=== PATIENT | male | born 1960 | race Caucasian/White ===

== ENCOUNTER 2021-01-01 09:42 | Outpatient (REF) | payer MEDICAID, SELFPAY ==
[2021-01-01 10:50] LABS: MANUAL DIFF FLAG NO
[2021-01-01 11:01] LABS: Basophils Absolute Auto 0.1 X10*3/uL (0.0-0.2); Basophils Percent Auto 0.6 % (0-2); Eosinophils Absolute Auto 0.1 X10*3/uL (0.0-0.4); Hematocrit 52.5 % (42-52); Hemoglobin 16.9 g/dl (14.0-18.0); Imm Gran Abs Auto 0.02 X10*3/uL (0.00-0.03); Imm Gran Pct Auto 0.3 % (0.0-0.4); Lymphocytes Absolute Auto 1.6 X10*3/uL (1.2-4.9); Lymphocytes Percent Auto 20.4 % (20-40); Mean Corpuscular HGB Conc 32.2 g/dl (31.0-36.0); Mean Corpuscular Hemoglobin 29.7 pg (27.0-33.0); Mean Corpuscular Volume 92.3 fL (80-98); Mean Platelet Volume 11.2 fL (9.4-12.4); Monocytes Absolute Auto 0.5 X10*3/uL (0.1-1.2); Monocytes Percent Auto 5.9 % (2-11); Neutrophils Absolute Auto 5.6 X10*3/uL (2.0-8.3); Neutrophils Percent Auto 71.8 % (45-73); Platelet Count 227 X10*3/uL (160-400); Red Blood Count 5.69 X10*6/uL (4.60-5.80); Red Cell Distribution Width 13.2 % (11.0-16.0); White Blood Count 7.8 X10*3/uL (4.8-10.8)
[2021-01-01 11:13] LABS: Alanine Aminotransferase 53 U/L (0-40); Albumin Level 4.6 g/dL (3.5-5.0); Alkaline Phosphatase 72 U/L (39-117); Anion Gap 12 (12-20); Aspartate Amino Transferase 32 U/L (5-37); Bilirubin Total 0.4 mg/dL (0.0-1.0); Blood Urea Nitrogen 12 mg/dL (9-16); Carbon Dioxide 30 mmol/L (22-29); Chloride 100 mmol/L (96-108); Cholesterol 217 mg/dL; Estimated Glomerular Filt Rate > 60; Glucose Random 96 mg/dL (60-115); HDL Cholesterol 48 mg/dL; LDL Cholesterol Calculated 145 mg/dl; Potassium 4.3 mmol/L (3.3-5.1); Sodium 138 mmol/L (135-145); Total Protein 7.5 g/dL (6.5-8.0); Triglycerides 121 mg/dL
[2021-01-01 11:35] LABS: Vitamin D 25-OH Total 15.9 ng/mL (>30)
== END 2021-01-01 09:43 | disposition home or self-care (01) ==
LOC: HO.LAB 09:42
PROVIDERS: PCP Nurse Practitioner Family; Visit Provider Nurse Practitioner Family
DX: E78.2 Mixed hyperlipidemia (principal); E55.9 Vitamin D deficiency, unspecified; J32.0 Chronic maxillary sinusitis
CPT/HCPCS: 36415; 80053; 80061; 82306; 85025

== ENCOUNTER 2021-01-09 10:32 | Emergency (ER) | payer MEDICAID, SELFPAY ==
[2021-01-09 11:07] VITALS: BP 168/94; PULSE 98; RESP 18; TEMP 36.6; O2SAT 98; BMI 26.3
--- NOTE | 2021-01-09 12:35 | ED.BACK ---
HPI - Back Pain/Injury General Chief Complaint: Back Pain/Injury Stated Complaint: back pain Time Seen by Provider: 01/09/21 12:04 Source: patient Mode of arrival: ambulatory History of Present Illness HPI Narrative: 60-year-old male of hypertension presenting to the ED complaining of right-sided lower back pain radiating down right lower extremity times a couple days. Reports pain worse with movement/ambulation. Denies known injury, trauma, or falls, numbness, tingling, weakness, urinary incontinence/retention, fever, chills MD elicited complaint: back pain Related Data Previous Rx's Medication Instructions Recorded acetaminophen [Tylenol Extra 500 mg PO Q6H PRN #20 tab 01/09/21 Strength] cyclobenzaprine 5 mg PO Q8H PRN 5 Days #14 tab 01/09/21 lidocaine [Lidoderm] 1 patch TOPICAL DAILY PRN #30 ea 01/09/21 MDD remove after 12 hours naproxen 500 mg PO BID PRN 10 Days #20 tab 01/09/21 Allergies Allergy/AdvReac Type Severity Reaction Status Date / Time cephalexin [From KEFLEX] Allergy Unknown RASH Unverified 04/19/20 15:43 naproxen [NAPROXEN] Allergy Unknown RASH Unverified 04/19/20 15:43 sulfamethoxazole Allergy Unknown RASH Unverified 04/19/20 15:43 [From BACTRIM] trimethoprim [From BACTRIM] Allergy Unknown RASH Unverified 04/19/20 15:43 keflex Allergy Unknown Uncoded 08/05/19 00:00 naproxen Allergy Unknown Uncoded 08/05/19 00:00 sulfa Allergy Unknown Uncoded 08/05/19 00:00 Review of Systems Review of Systems: Constitutional: No Fever, No Chills Cardiovascular: No Chest Pain, No SOB Respiratory: No Cough, No Sputum, No Wheezing Gastrointestinal: No Nausea, No Vomiting, No Abdominal pain Genitourinary: No Dysuria, No Urinary Incontinence/retention Musculoskeletal: + joint pain, No Myalgias, No Joint Swelling Skin: No Skin Lesions, No rash Neuro: No Weakness, No Numbness, No Paresthesias Yes all other systems are reviewed and are negative Neurologic: Denies Sensory deficit (Neuro) [facility] Past Medical History Attestation statement: The following information was validated with the patient. Medical History (Updated 01/09/21 @ 12:35 by JEEVAN Cruz) HTN (hypertension) Social History Social History Advance Directives: No Advance Directives Information Provided: No Physical Exam Vital Signs: Vital Signs: Last Vital Signs Temp 97.8 F 01/09/21 11:07 Pulse 98 01/09/21 11:07 Resp 18 01/09/21 11:07 BP 168/94 H 01/09/21 11:07 Pulse Ox 98 01/09/21 11:07 Body Mass Index 26.3 Const: General: cooperative, healthy appearing and no acute distress Orientation/consciousness: patient oriented x3 Limitations: no limitations HENMT: Head: Yes normal to inspection Ears: hearing grossly normal bilaterally General nose exam: Normal external nose present Face and sinus: Yes normal facial exam Eyes: General: appearance normal, both eyes and all related structures EOM: EOMs intact bilaterally Neck: Neck: Yes normal visual inspection and Yes no meningeal signs Resp: Effort & Inspection: normal respiratory effort Cardio: Rate: regular rate GI: Inspection: Yes normal to inspection Palpation (GI): Soft to palpation, nontender, no guarding and not rigid Back/Spine/Pelvis: Other: no midline cervical, thoracic, or lumbar spinous tenderness. + Right-sided lower lumbar MSK tenderness to palpation Skin: Rashes: no rashes Wounds: no wounds Neuro: Other: no saddle anesthesia, ambulating with steady gait General: patient oriented x3, gait normal, tone normal, moves all extremities and no meningeal signs Gait exam (Neuro): Normal gait present Motor exam (neuro): 5/5 motor strength present throughout Sensory Exam: No Sensory deficit (Neuro) Extrem: General: Yes normal to inspection MDM - Back Pain/Injury MDM Narrative Medical decision making narrative: 60-year-old male of hypertension presenting to the ED complaining of right-sided lower back pain radiating down right lower extremity times a couple days. On exam vital signs stable, NAD, well appearing, ambulating with steady gait, no midline spinous tenderness throughout, no red flag symptoms, no saddle anesthesia. MSK tenderness elicited on exam. Likely MSK pain / sciatica. Low concern for cauda equina, cord compression, or fracture/dislocation Medical Records Attestation: I reviewed the patient's medical records. Discharge Plan Discharge Clinical Impression: Lumbar radiculopathy Sciatica Qualifiers: Laterality: right Qualified Code(s): M54.31 - Sciatica, right side Patient Disposition: Home, Self-Care Instructions: Acute Low Back Pain (ED) Additional Instructions: Your pain is likely musculoskeletal Flexeril is a muscle relaxer, take at night as it makes you drowsy, do not drive, drink alcohol, or operate machinery while taking it Naproxen as an anti-inflammatory / pain medication, take with food Lidoderm patches are numbing patches, apply to painful area In addition take Tylenol at home If symptoms persist or worsen, pain becomes unbearable, you developed urinary retention or incontinence, or weakness return to the ED Prescriptions: New acetaminophen [Tylenol Extra Strength] 500 mg tablet 500 mg PO Q6H PRN (Reason: pain or fever) Qty: 20 RF: 0 lidocaine [Lidoderm] 5 % adhesive patch,medicated 1 patch topical DAILY MDD remove after 12 hours PRN (Reason: pain) Qty: 30 RF: 0 naproxen 500 mg tablet 500 mg PO BID PRN (Reason: pain) 10 Days Qty: 20 RF: 0 cyclobenzaprine 5 mg tablet 5 mg PO Q8H PRN (Reason: pain (scale score 7-10)) 5 Days Qty: 14 RF: 0 Referrals: Claire Hidalgo NP [Primary Care Provider] - 2 days Interventions: ED Discharge Assessment Last Done: 01/09/21 12:43 Discharge Date/Time: 01/09/21 12:44
[2021-01-09] MEDS: Ketorolac Tromethamine 30 MG/ML VIAL IM (12:38)
== END 2021-01-09 12:44 | disposition home or self-care (01) ==
PROVIDERS: Emergency Provider Emergency Medicine; PCP Nurse Practitioner Family
DX: M54.16 Radiculopathy, lumbar region (principal); M54.31 Sciatica, right side; I10 Essential (primary) hypertension; Z79.899 Other long term (current) drug therapy
CPT/HCPCS: 96372; 99283; 99284; J1885

== ENCOUNTER 2021-01-22 08:24 | Outpatient (REF) | payer MEDICAID, SELFPAY ==
--- NOTE | ~2021-01-22 | XR_ITS ---
EXAMINATION: XR FEMUR, RIGHT CLINICAL INFORMATION: Pain in right leg. COMPARISON: None TECHNIQUE: Right femur is imaged in 4 views. FINDINGS: There is normal bony mineralization. No fracture or destructive process or periostitis. The right hip shows no narrowing or erosive change or chondrocalcinosis. The visualized right SI joint and the pubis are unremarkable. The knee shows no gross joint narrowing and no erosive change. No definite suprapatellar effusion. XR/XR femur RT 2V IMPRESSION: Normal right femur.
== END 2021-01-22 08:25 | disposition home or self-care (01) ==
LOC: HO.XRAY 08:24
PROVIDERS: PCP Nurse Practitioner Family; Visit Provider Internal Medicine
DX: M25.551 Pain in right hip (principal)
CPT/HCPCS: 73552

== ENCOUNTER 2021-02-05 07:58 | Outpatient (REF) | payer MEDICAID, SELFPAY ==
--- NOTE | ~2021-02-05 | XR_ITS ---
EXAMINATION: XR LUMBOSACRAL SPINE CLINICAL INFORMATION: Low back pain with sciatica COMPARISON: None TECHNIQUE: Three views of the lumbosacral spine. FINDINGS: There is endplate osteophyte formation at the L1-2, L3-4, and L4-5 level indicative of mild degenerative disc disease. No associated disc space narrowing. No fracture or bone lesion. Facets unremarkable. Mild calcification of the abdominal aorta. Visualized pelvis including sacroiliac joints are normal. XR/XR lumbar spine 2-3V IMPRESSION: Mild spondylosis of lumbar sacral spine.
== END 2021-02-05 07:59 | disposition home or self-care (01) ==
LOC: HO.XRAY 07:58
PROVIDERS: PCP Nurse Practitioner Family; Visit Provider Internal Medicine
DX: M54.40 Lumbago with sciatica, unspecified side (principal)
CPT/HCPCS: 72100

== ENCOUNTER 2021-09-13 08:42 | Outpatient (REF) | payer MEDICAID, SELFPAY ==
[2021-09-13 09:02] LABS: MANUAL DIFF FLAG NO
[2021-09-13 10:11] LABS: Appearance Urine CLEAR; Color Urine YELLOW; Glucose Urine UA NEG (NEG); Leukocyte Esterase Urine NEG (NEG); Nitrite Urine NEG (NEG); Urine Blood NEG (NEG); Urine Ketones NEG (NEG); Urine Protein NEG (NEG-TRACE)
[2021-09-13 10:12] LABS: Basophils Absolute Auto 0.1 X10*3/uL (0.0-0.2); Basophils Percent Auto 0.9 % (0-2); Eosinophils Absolute Auto 0.2 X10*3/uL (0.0-0.4); Eosinophils Percent Auto 2.6 % (0-4); Hematocrit 48.7 % (42.0-52.0); Hemoglobin 15.5 g/dl (14.0-18.0); Imm Gran Abs Auto 0.01 X10*3/uL (0.00-0.03); Imm Gran Pct Auto 0.2 % (0.0-0.4); Lymphocytes Absolute Auto 1.9 X10*3/uL (1.2-4.9); Lymphocytes Percent Auto 31.6 % (20-40); Mean Corpuscular HGB Conc 31.8 g/dl (31.0-36.0); Mean Corpuscular Hemoglobin 29.6 pg (27.0-33.0); Mean Corpuscular Volume 92.9 fL (80.0-98.0); Mean Platelet Volume 11.3 fL (9.4-12.4); Monocytes Absolute Auto 0.5 X10*3/uL (0.1-1.2); Monocytes Percent Auto 9.1 % (2-11); Neutrophils Absolute Auto 3.3 x10*3/uL (2.0-8.3); Neutrophils Percent Auto 55.6 % (45-73); Platelet Count 237 X10*3/uL (160-400); Red Blood Count 5.24 X10*6/uL (4.60-5.80); Red Cell Distribution Width 13.8 % (11.0-16.0); White Blood Count 5.9 X10*3/uL (4.8-10.8)
[2021-09-13 10:17] LABS: Alanine Aminotransferase 21 U/L (0-40); Albumin Level 4.4 g/dL (3.5-5.0); Alkaline Phosphatase 73 U/L (39-117); Anion Gap 10 (12-20); Aspartate Amino Transferase 20 U/L (5-37); Bilirubin Total 0.5 mg/dL (0.0-1.0); Blood Urea Nitrogen 11 mg/dL (9-16); Calcium 9.7 mg/dL (8.4-10.2); Carbon Dioxide 29 mmol/L (22-29); Chloride 105 mmol/L (96-108); Cholesterol 176 mg/dL; Estimated Glomerular Filt Rate > 60; Glucose Random 84 mg/dL (60-115); HDL Cholesterol 55 mg/dL; LDL Cholesterol Calculated 106 mg/dl; Potassium 4.8 mmol/L (3.3-5.1); Sodium 139 mmol/L (135-145); Total Protein 7.2 g/dL (6.5-8.0); Triglycerides 76 mg/dL
[2021-09-13 10:39] LABS: Prostate Specific Antigen 1.07 ng/mL (<0.05-4.0)
== END 2021-09-13 08:43 | disposition home or self-care (01) ==
LOC: HO.LAB 08:42
PROVIDERS: PCP Nurse Practitioner Family; Visit Provider Nurse Practitioner Family
DX: I10 Essential (primary) hypertension (principal); R32 Unspecified urinary incontinence; Z12.5 Encounter for screening for malignant neoplasm of prostate
CPT/HCPCS: 36415; 80053; 80061; 81003; 84153; 85025

== ENCOUNTER 2021-11-11 11:35 | Emergency (ER) | payer MEDICAID, SELFPAY ==
--- NOTE | ~2021-11-11 | XR_ITS ---
EXAMINATION: XR CHEST CLINICAL INFORMATION: Chest pain COMPARISON: None TECHNIQUE: Frontal view of the chest was obtained. FINDINGS: The lungs are well-expanded and clear of acute pneumonic process. There are small millimeter nodule left upper lobe overlying posterior fifth rib and a 6 mL nodule medially in the left upper lobe adjacent to the aortic knob. Heart size and pulmonary vascularity is normal. No gross bony or the body seen. XR/XR chest 1V IMPRESSION: The lungs are clear. 2 nodules left lower lobe. The larger nodules medially adjacent aortic knob is unchanged to previous study 10/12/2015. The other nodule is new.
--- NOTE | 2021-11-11 11:39 | ECG_ITS ---
Test Reason : cp Blood Pressure : / mmHG Vent. Rate : 098 BPM Atrial Rate : 098 BPM P-R Int : 144 ms QRS Dur : 094 ms QT Int : 344 ms P-R-T Axes : 068 055 060 degrees QTc Int : 439 ms Normal sinus rhythm Incomplete right bundle branch block Borderline ECG No previous ECGs available Referred By: Generic ED Physician Electronically Signed By:Wilson Gordillo
[2021-11-11 11:41] VITALS: BP 168/109; PULSE 93; RESP 18; TEMP 36.1; O2SAT 95; BMI 25.8
[2021-11-11 11:55] LABS: MANUAL DIFF FLAG NO
[2021-11-11 11:56] LABS: Basophils Absolute Auto 0.1 X10*3/uL (0.0-0.2); Basophils Percent Auto 0.6 % (0-2); Eosinophils Absolute Auto 0.1 X10*3/uL (0.0-0.4); Eosinophils Percent Auto 1.3 % (0-4); Hematocrit 47.1 % (42.0-52.0); Hemoglobin 15.4 g/dl (14.0-18.0); Imm Gran Abs Auto 0.02 X10*3/uL (0.00-0.03); Imm Gran Pct Auto 0.2 % (0.0-0.4); Lymphocytes Absolute Auto 2.1 X10*3/uL (1.2-4.9); Lymphocytes Percent Auto 24.9 % (20-40); Mean Corpuscular HGB Conc 32.7 g/dl (31.0-36.0); Mean Corpuscular Hemoglobin 30.1 pg (27.0-33.0); Monocytes Absolute Auto 0.6 X10*3/uL (0.1-1.2); Monocytes Percent Auto 7.3 % (2-11); Neutrophils Absolute Auto 5.5 x10*3/uL (2.0-8.3); Neutrophils Percent Auto 65.7 % (45-73); Platelet Count 206 X10*3/uL (160-400); Red Blood Count 5.12 X10*6/uL (4.60-5.80); Red Cell Distribution Width 13.8 % (11.0-16.0); White Blood Count 8.4 X10*3/uL (4.8-10.8)
[2021-11-11 12:11] LABS: Anion Gap 12 (12-20); Blood Urea Nitrogen 9 mg/dL (9-16); Calcium 9.6 mg/dL (8.4-10.2); Carbon Dioxide 22 mmol/L (22-29); Chloride 107 mmol/L (96-108); Creatinine Clr Calc Pharmacy 85.4; Estimated Glomerular Filt Rate > 60; Glucose Random 114 mg/dL (60-115); Potassium 3.7 mmol/L (3.3-5.1); Sodium 137 mmol/L (135-145)
[2021-11-11 12:18] LABS: Troponin-I High Sensitivity < 3.5 ng/L (<3.5-35.0)
--- NOTE | 2021-11-11 13:56 | ED.CHESTPAIN ---
HPI - Chest Pain General Chief Complaint: Chest Pain Stated Complaint: chest pain Time Seen by Provider: 11/11/21 13:56 Source: patient Mode of arrival: ambulatory Limitations: no limitations History of Present Illness MD complaint: chest pain Onset (ago): day(s) (2) Timing of current episode: episodic Prior episodes: No Onset: during rest Pain radiation: right arm Severity: moderate Quality: tightness and aching Relieving factors: nothing and other Exacerbating factors: palpation and movement Context: other (? hurt his R chest lifting something at work) Treatment prior to arrival: none Related Data Previous Rx's Medication Instructions Recorded acetaminophen 500 mg tablet 500 mg PO Q6H PRN #20 tab 01/09/21 (Tylenol Extra Strength) cyclobenzaprine 5 mg tablet 5 mg PO Q8H PRN 5 Days #14 tab 01/09/21 lidocaine 5 % topical patch 1 patch TOPICAL DAILY PRN #30 ea 01/09/21 (Lidoderm) MDD remove after 12 hours naproxen 500 mg tablet 500 mg PO BID PRN 10 Days #20 tab 01/09/21 cyclobenzaprine 10 mg tablet 10 mg PO TID PRN #14 tab 11/11/21 lidocaine 4 % topical patch 1 patch TOPICAL DAILY PRN #10 ea 11/11/21 Allergies Allergy/AdvReac Type Severity Reaction Status Date / Time cephalexin [From KEFLEX] Allergy Unknown RASH Unverified 04/19/20 15:43 naproxen [NAPROXEN] Allergy Unknown RASH Unverified 04/19/20 15:43 sulfamethoxazole Allergy Unknown RASH Unverified 04/19/20 15:43 [From BACTRIM] trimethoprim [From BACTRIM] Allergy Unknown RASH Unverified 04/19/20 15:43 keflex Allergy Unknown Uncoded 08/05/19 00:00 naproxen Allergy Unknown Uncoded 08/05/19 00:00 sulfa Allergy Unknown Uncoded 08/05/19 00:00 Review of Systems Review of Systems: Constitutional : No Weight loss, No Fever, No Chills ENT/Mouth : No sore throat, No Rhinorrhea Eyes: No Eye Pain, No Swelling Cardiovascular : pos Chest Pain, no SOB, no Dyspnea on Exertion, No Orthopnea, No Edema, No Palpitations Respiratory : No Cough, No Sputum Gastrointestinal : no Nausea, No Vomiting, No Diarrhea, No abdominal Pain, No Hematochezia, No Melena Genitourinary : No Dysuria, No Urinary Frequency Musculoskeletal : No joint pain, No Myalgias, No Joint Swelling Skin : No Skin Lesions, No rash Neuro : No Weakness, No Numbness, No Dizziness, No Headache Psych : No Anxiety/Panic, No Depression Heme/Lymph: No Bruising, No Lymphadenopathy Endocrine : No Polyuria, No Polydipsia All other systems reviewed and are negative [facility] Past Medical History Attestation statement: The following information was validated with the patient. Medical History HTN (hypertension) Social History Social History (Updated 11/11/21 @ 14:15 by Zaida Vila DO) Patient Tobacco Use Status: Never used Tobacco Advance Directives: No Advance Directives Information Provided: No Physical Exam Vital Signs: Vital Signs: Last Vital Signs Temp 97.0 F 11/11/21 11:41 Pulse 93 11/11/21 11:41 Resp 18 11/11/21 11:41 BP 168/109 H 11/11/21 11:41 Pulse Ox 95 11/11/21 11:41 BMI result Body Mass Index 25.8 Appearance: Alert. Oriented X3. No acute distress. Eyes: Pupils equal, round and reactive to light. ENT: Pharynx normal. Neck: Normal inspection. Neck supple. CVS: Normal heart rate and rhythm. Pulses normal. Chest: ttp along R chest wall reproduces pain pain with ROM of R arm, tenderness over R pectoralis insertion site Respiratory: No respiratory distress. Breath sounds normal. Abdomen: Soft and non-tender. Skin: Skin warm and dry. Normal skin color. Normal skin turgor. Extremities: No lower extremity edema. No calf ttp Neuro: Oriented X 3. No motor deficit. No sensory deficit. Course Course Course Narrative: non-ischemic EKG, repeat trop negative stable for DC discussed nodules on CXR with patient and need to see PCP for outpatient CT of chest, he verbalized understanding. MDM - Chest Pain MDM Narrative Medical decision making narrative: 61 yo male with hx of HTN here with reproducible R sided chest wall pain - he thinks he might have injured it at work. He has no associated symptoms. He denies any dyspnea/nausea. It is very reproduceable in nature which is atypical for ACS. He has bounding distal pulses doubt dissection. no hypoxia, not pleuritic no signs of DVT doubt PE. Will obtain two troponins if negative treat for chest wall strain. BP slightly high might be pain related. Lab Data Result diagrams: 11/11/21 11:50 11/11/21 11:50 Labs: Lab Results 11/11/21 11/11/21 11/11/21 Range/Units 11:50 11:50 11:50 WBC 8.4 (4.8-10.8) X10*3/uL RBC 5.12 (4.60-5.80) X10*6/uL Hgb 15.4 (14.0-18.0) g/dl Hct 47.1 (42.0-52.0) % MCV 92.0 (80.0-98.0) fL MCH 30.1 (27.0-33.0) pg MCHC 32.7 (31.0-36.0) g/dl RDW 13.8 (11.0-16.0) % Plt Count 206 (160-400) X10*3/uL MPV 10.0 (9.4-12.4) fL Immature Gran % (Auto) 0.2 (0.0-0.4) % Neut % (Auto) 65.7 (45-73) % Lymph % (Auto) 24.9 (20-40) % [place] % (Auto) 7.3 (2-11) % Eos % (Auto) 1.3 (0-4) % Baso % (Auto) 0.6 (0-2) % Lymph # (Auto) 2.1 (1.2-4.9) X10*3/uL [place] # (Auto) 0.6 (0.1-1.2) X10*3/uL Eos # (Auto) 0.1 (0.0-0.4) X10*3/uL Baso # (Auto) 0.1 (0.0-0.2) X10*3/uL Abs Immat Gran (auto) 0.02 (0.00-0.03) X10*3/uL Absolute Neuts (auto) 5.5 (2.0-8.3) x10*3/uL Absolute Nucleated RBC 0.000 (0.0-0.012) X10*3/uL Nucleated RBC % (auto) 0.0 (0.0-0.2) /100WBC Sodium 137 (135-145) mmol/L Potassium 3.7 D (3.3-5.1) mmol/L Chloride 107 (96-108) mmol/L Carbon Dioxide 22 (22-29) mmol/L Anion Gap 12 (12-20) BUN 9 (9-16) mg/dL Creatinine 0.84 (0.5-1.4) mg/dL Estim Creat Clear Calc 85.4 Estimated GFR > 60 Random Glucose 114 D (60-115) mg/dL Calcium 9.6 (8.4-10.2) mg/dL Troponin I High Sens < 3.5 (<3.5-35.0) ng/L 11/11/21 Range/Units 14:32 WBC (4.8-10.8) X10*3/uL RBC (4.60-5.80) X10*6/uL Hgb (14.0-18.0) g/dl Hct (42.0-52.0) % MCV (80.0-98.0) fL MCH (27.0-33.0) pg MCHC (31.0-36.0) g/dl RDW (11.0-16.0) % Plt Count (160-400) X10*3/uL MPV (9.4-12.4) fL Immature Gran % (Auto) (0.0-0.4) % Neut % (Auto) (45-73) % Lymph % (Auto) (20-40) % [place] % (Auto) (2-11) % Eos % (Auto) (0-4) % Baso % (Auto) (0-2) % Lymph # (Auto) (1.2-4.9) X10*3/uL [place] # (Auto) (0.1-1.2) X10*3/uL Eos # (Auto) (0.0-0.4) X10*3/uL Baso # (Auto) (0.0-0.2) X10*3/uL Abs Immat Gran (auto) (0.00-0.03) X10*3/uL Absolute Neuts (auto) (2.0-8.3) x10*3/uL Absolute Nucleated RBC (0.0-0.012) X10*3/uL Nucleated RBC % (auto) (0.0-0.2) /100WBC Sodium (135-145) mmol/L Potassium (3.3-5.1) mmol/L Chloride (96-108) mmol/L Carbon Dioxide (22-29) mmol/L Anion Gap (12-20) BUN (9-16) mg/dL Creatinine (0.5-1.4) mg/dL Estim Creat Clear Calc Estimated GFR Random Glucose (60-115) mg/dL Calcium (8.4-10.2) mg/dL Troponin I High Sens < 3.5 (<3.5-35.0) ng/L ECG Data ECG #1: Attestation: I personally reviewed and interpreted this ECG as follows: ECG interpretation date: 11/11/21 ECG interpretation time: 13:57 Interpretation: Rate: 98 Rhythm: NSR [place]: normal Normal P waves. Normal SANDIE. incomplete RBBB ST T wave : normal no ASHLIE qTC: normal prior studies: no acute ischemia The study has been interpreted contemporaneously by me. Discharge Plan Discharge Clinical Impression: Atypical chest pain Patient Disposition: Home, Self-Care Instructions: Chest Pain (ED) Additional Instructions: return to ED for any worsening symptoms or concerns repeat heart tests negative, chest xray negative Prescriptions: New cyclobenzaprine 10 mg tablet 10 mg PO TID PRN (Reason: muscle spasm) Qty: 14 0RF lidocaine 4 % adhesive patch,medicated 1 patch topical DAILY PRN (Reason: pain) Qty: 10 0RF Rx Instructions: may leave on for up to 12 hrs No Action acetaminophen [Tylenol Extra Strength] 500 mg tablet 500 mg PO Q6H PRN (Reason: pain or fever) Qty: 20 0RF lidocaine [Lidoderm] 5 % adhesive patch,medicated 1 patch topical DAILY MDD remove after 12 hours PRN (Reason: pain) Qty: 30 0RF Rx Instructions: leave on most painful area for up to 12 hrs naproxen 500 mg tablet 500 mg PO BID PRN (Reason: pain) 10 Days Qty: 20 0RF cyclobenzaprine 5 mg tablet 5 mg PO Q8H PRN (Reason: pain (scale score 7-10)) 5 Days Qty: 14 0RF Referrals: Claire Hidalgo NP [Primary Care Provider] - 2 days (if no improvement) Stand Alone Forms: Work/School Release Interventions: ED Discharge Assessment Last Done: 11/11/21 15:23 Discharge Date/Time: 11/11/21 15:24
[2021-11-11] MEDS: Lidocaine 4 % Patch ADH..PATCH 1 PATCH TRANSDERMA (14:38)
[2021-11-11] MEDS: Cyclobenzaprine HCl 10 MG TABLET PO (14:38)
[2021-11-11 15:00] LABS: Troponin-I High Sensitivity < 3.5 ng/L (<3.5-35.0)
== END 2021-11-11 15:24 | disposition home or self-care (01) ==
PROVIDERS: Emergency Provider Emergency Medicine; PCP Nurse Practitioner Family
DX: R07.89 Other chest pain (principal); I10 Essential (primary) hypertension
CPT/HCPCS: 36415; 71045; 80048; 84484; 85025; 93005; 99283

== ENCOUNTER 2021-11-22 13:34 | Outpatient (REF) | payer MEDICAID, SELFPAY ==
--- NOTE | ~2021-11-22 | US_ITS ---
EXAMINATION: US RETROPERITONEAL LIMITED (AORTA) CLINICAL INFORMATION: Abdominal aortic aneurysm. COMPARISON: None TECHNIQUE: Mijares-scale, color Doppler and spectral Doppler evaluation of the abdominal aorta. FINDINGS: The aorta is atherosclerotic. The measurements of the aorta in maximum AP and transverse dimensions respectively are as follows: Proximal: 2.7 x 2.8 cm. Mid: 2.1 x 2.7 cm. Distal: 1.7 x 2.0 cm. PSV: 63 cm/s. The measurements of the common iliac arteries in maximum AP and TRV dimensions are as follows: Right Common Iliac Artery: 1.3 x 1.4 cm. Left Common Iliac Artery: 1.0 x 1.2 cm. US/US abdominal aortic aneurysm IMPRESSION: Atherosclerotic abdominal aorta. Negative for abdominal aortic aneurysm.
== END 2021-11-22 13:35 | disposition home or self-care (01) ==
LOC: HO.US 13:34
PROVIDERS: Visit Provider Nurse Practitioner Family
DX: I77.819 Aortic ectasia, unspecified site (principal)
CPT/HCPCS: 76706

== ENCOUNTER 2022-09-08 08:11 | Outpatient (REF) | payer MEDICAID, SELFPAY ==
[2022-09-08 08:19] LABS: MANUAL DIFF FLAG NO
[2022-09-08 09:29] LABS: Basophils Percent Auto 0.5 % (0-2); Eosinophils Absolute Auto 0.1 X10*3/uL (0.0-0.4); Eosinophils Percent Auto 1.3 % (0-4); Hematocrit 48.9 % (42.0-52.0); Hemoglobin 15.8 g/dl (14.0-18.0); Imm Gran Abs Auto 0.01 X10*3/uL (0.00-0.03); Imm Gran Pct Auto 0.2 % (0.0-0.4); Lymphocytes Absolute Auto 2.2 X10*3/uL (1.2-4.9); Lymphocytes Percent Auto 34.9 % (20-40); Mean Corpuscular HGB Conc 32.3 g/dl (31.0-36.0); Mean Corpuscular Hemoglobin 29.6 pg (27.0-33.0); Mean Corpuscular Volume 91.7 fL (80.0-98.0); Mean Platelet Volume 11.6 fL (9.4-12.4); Monocytes Absolute Auto 0.7 X10*3/uL (0.1-1.2); Monocytes Percent Auto 10.6 % (2-11); Neutrophils Absolute Auto 3.3 x10*3/uL (2.0-8.3); Neutrophils Percent Auto 52.5 % (45-73); Platelet Count 182 X10*3/uL (160-400); Red Blood Count 5.33 X10*6/uL (4.60-5.80); Red Cell Distribution Width 13.7 % (11.0-16.0); White Blood Count 6.2 X10*3/uL (4.8-10.8)
[2022-09-08 10:03] LABS: Alanine Aminotransferase 36 U/L (0-40); Albumin Level 4.1 g/dL (3.5-5.0); Alkaline Phosphatase 75 U/L (39-117); Anion Gap 14 (12-20); Aspartate Amino Transferase 29 U/L (5-37); Bilirubin Total 0.5 mg/dL (0.0-1.0); Blood Urea Nitrogen 10 mg/dL (9-16); Calcium 9.3 mg/dL (8.4-10.2); Carbon Dioxide 25 mmol/L (22-29); Chloride 105 mmol/L (96-108); Cholesterol 182 mg/dL; Estimated Glomerular Filt Rate > 60; Glucose Random 89 mg/dL (60-115); HDL Cholesterol 47 mg/dL; LDL Cholesterol Calculated 109 mg/dl; Potassium 4.3 mmol/L (3.3-5.1); Sodium 140 mmol/L (135-145); Total Protein 6.7 g/dL (6.5-8.0); Triglycerides 131 mg/dL
[2022-09-08 10:22] LABS: Prostate Specific Antigen Scr 1.46 ng/mL (<0.05-4.0)
== END 2022-09-08 08:12 | disposition home or self-care (01) ==
LOC: HO.LAB 08:11
PROVIDERS: PCP Nurse Practitioner Family; Visit Provider Nurse Practitioner Family
DX: E78.2 Mixed hyperlipidemia (principal); I10 Essential (primary) hypertension; Z12.5 Encounter for screening for malignant neoplasm of prostate
CPT/HCPCS: 36415; 80053; 80061; 84153; 85025

== ENCOUNTER 2022-10-03 07:40 | Outpatient (REF) | payer MEDICAID, SELFPAY ==
--- NOTE | ~2022-10-03 | CT_ITS ---
EXAMINATION: CT CHEST WITH CONTRAST CLINICAL INFORMATION: Multiple lung nodules. Two (2) nodules on chest x-ray. COMPARISON: Chest x-ray 11/11/2021 TECHNIQUE: Multidetector volumetric CT imaging of the chest was obtained after the administration of 50 mL of Omnipaque 350 intravenous contrast without immediate adverse reactions. Axial MIP volume rendering provided. Sagittal and coronal reformatted images were obtained. This CT examination was performed using dose optimization techniques as appropriate, variously including the following: *Automated exposure control *Adjustment of mA and/or kV according to patient size (this includes techniques or standardized protocols for targeted exams where dose is matched to indication/reason for exam; i.e. extremities or head) *Use of iterative reconstruction technique DLP: 151 mGy-cm FINDINGS: RN SPINE: Unremarkable. LUNGS: The lungs are well-expanded and clear of acute pneumonic process. There is a 7 mm calcified nodule left upper lobe. No additional nodules seen. There is plate-like atelectasis in the lingula. MEDIASTINUM: The thyroid lobes are symmetric and normal. The central trachea and the bronchi are widely patent. Heart size and the great vessels are normal caliber. There is atherosclerotic changes involving thoracic arch and descending thoracic aorta. The ascending aorta measures 4.2 x 4.0 cm. No abnormal mediastinal or hilar lymph nodes. Mild coronary artery calcifications are present. There is no pericardial effusion. PLEURA: There is no pleural effusion. No pleural mass or thickening. AXILLA: No lymphadenopathy. UPPER ABDOMEN: Visualized liver, spleen, pancreas appear unremarkable. Bilateral adrenal glands are mildly hypertrophied. No radiopaque gallstone seen. OSSEOUS STRUCTURES: No aggressive lytic or sclerotic process seen. CT/CT chest w IV con IMPRESSION: 1. Calcified granuloma left upper lobe. No additional nodules seen. No follow-up is needed. 2. No abnormal mediastinal or axillary lymph nodes. Fleischner guidelines were followed.
[2022-10-03] MEDS: iohexoL 350 MG/ML 100 ML INFUS..BTL IV (09:03)
== END 2022-10-03 07:41 | disposition home or self-care (01) ==
LOC: HO.CT 07:40
PROVIDERS: Visit Provider Nurse Practitioner Family
DX: R91.8 Other nonspecific abnormal finding of lung field (principal)
CPT/HCPCS: 71260; Q9967

== ENCOUNTER 2023-01-02 12:46 | Emergency (ER) | payer MEDICAID, SELFPAY ==
[2023-01-02 12:54] VITALS: BP 128/88; PULSE 100; RESP 18; TEMP 36.8; O2SAT 98; BMI 26.6
--- NOTE | 2023-01-02 12:54 | ED.GENADULT ---
HPI - General Adult General Chief complaint: Skin/Abscess/Foreign Body Stated complaint: Cyst Between Buttocks Time Seen by Provider: 01/02/23 13:05 History of Present Illness HPI narrative: Patient complains of abscess in the gluteal area that has developed over the last 4 days and is painful and is now discharging pus he denies any fever no abdominal pain no nausea or vomiting Related Data Previous Rx's Medication Instructions Recorded acetaminophen 500 mg tablet 500 mg PO Q6H PRN pain or fever 01/09/21 (Tylenol Extra Strength) #20 tabs cyclobenzaprine 5 mg tablet 5 mg PO Q8H PRN pain (scale score 01/09/21 7-10) 5 days #14 tabs lidocaine 5 % topical patch 1 patch topical DAILY PRN pain #30 01/09/21 (Lidoderm) ea naproxen 500 mg tablet 500 mg PO BID PRN pain 10 days #20 01/09/21 tabs cyclobenzaprine 10 mg tablet 10 mg PO TID PRN muscle spasm #14 11/11/21 tabs lidocaine 4 % topical patch 1 patch topical DAILY PRN pain #10 11/11/21 ea acetaminophen 500 mg tablet 1,000 mg PO QID PRN pain #30 tabs 01/02/23 doxycycline hyclate 100 mg capsule 100 mg PO BID 7 days #14 caps 01/02/23 oxycodone 5 mg tablet 5 mg PO Q6H PRN pain #10 tabs 01/02/23 Allergies Allergy/AdvReac Type Severity Reaction Status Date / Time cephalexin [From KEFLEX] Allergy Unknown RASH Unverified 04/19/20 15:43 naproxen [NAPROXEN] Allergy Unknown RASH Unverified 04/19/20 15:43 sulfamethoxazole Allergy Unknown RASH Unverified 04/19/20 15:43 [From BACTRIM] trimethoprim [From BACTRIM] Allergy Unknown RASH Unverified 04/19/20 15:43 keflex Allergy Unknown Uncoded 08/05/19 00:00 naproxen Allergy Unknown Uncoded 08/05/19 00:00 sulfa Allergy Unknown Uncoded 08/05/19 00:00 [facility] Past Medical History Source: nursing notes reviewed Medical History HTN (hypertension) Social History Social History (Updated 11/11/21 @ 14:15 by Fabiana Vila DO) Patient Tobacco Use Status: Never used Tobacco Advance Directives: No Advance Directives Information Provided: Yes Physical Exam ED Vital Signs: Vital Signs - 24 hr 01/02/23 12:54 Temperature 98.3 F Pulse Rate 100 Respiratory Rate 18 Blood Pressure 128/88 Pulse Oximetry 98 Oxygen Delivery Method Room Air BMI result Body Mass Index 26.6 General appearance is no distress Head normocephalic atraumatic Neck is supple Abdomen soft nontender Skin exam on the left gluteal area medial there is a red tender fluctuant area discharging pus consistent with an abscess with minimal surrounding erythema Course Course Course Narrative: RME performed by Melinda Guerrero PA-C. Patient is a 62 year old assigned male at presenting to the emergency department with a cyst in between his butt cheeks. Patient placed back in the waiting room pending room availability. Left gluteal abscess is cleansed with Betadine Anesthesia is 8 cc of 1% lidocaine A small incision was made with discharge of pus, probed with forceps with further discharge of pus and packing is placed Medications Administered Discontinued Medications Generic Name Dose Route Start Last Admin Trade Name Freq PRN Reason Stop Dose Admin Doxycycline Monohydrate 100 mg 01/02/23 13:07 01/02/23 13:19 Doxycycline Monohydrate 100 Mg Capsule PO 01/02/23 13:08 100 mg ONCE ONE Administration Lidocaine HCl 5 ml 01/02/23 13:06 01/02/23 13:19 Lidocaine Hcl 1 % Mpf 5 Ml Vial SUBCUT 01/02/23 13:07 5 ml ONCE ONE Administration Lidocaine HCl 5 ml 01/02/23 13:07 01/02/23 13:19 Lidocaine Hcl 1 % Mpf 5 Ml Vial SUBCUT 01/02/23 13:08 5 ml ONCE ONE Administration Discharge Plan Discharge Clinical Impression: Abscess Patient Disposition: Home, Self-Care Additional Instructions: The abscess was drained with discharge of lots of pus We placed packing which needs to be removed in 2 days on Thursday so return to the ER in 2 days for packing removal wound check Return any time for spreading redness, worse pain and swelling fever any sign of worsening infection any worse condition or any concerns Prescriptions: New doxycycline hyclate 100 mg capsule 100 mg PO BID 7 Days Qty: 14 0RF acetaminophen 500 mg tablet 1,000 mg PO QID PRN (Reason: pain) Qty: 30 0RF oxycodone 5 mg tablet 5 mg PO Q6H PRN (Reason: pain) Qty: 10 0RF Rx Instructions: Partial Fill upon patient request. No Action acetaminophen [Tylenol Extra Strength] 500 mg tablet 500 mg PO Q6H PRN (Reason: pain or fever) Qty: 20 0RF lidocaine [Lidoderm] 5 % adhesive patch,medicated 1 patch topical DAILY MDD remove after 12 hours PRN (Reason: pain) Qty: 30 0RF Rx Instructions: leave on most painful area for up to 12 hrs naproxen 500 mg tablet 500 mg PO BID PRN (Reason: pain) 10 Days Qty: 20 0RF cyclobenzaprine 5 mg tablet 5 mg PO Q8H PRN (Reason: pain (scale score 7-10)) 5 Days Qty: 14 0RF cyclobenzaprine 10 mg tablet 10 mg PO TID PRN (Reason: muscle spasm) Qty: 14 0RF lidocaine 4 % adhesive patch,medicated 1 patch topical DAILY PRN (Reason: pain) Qty: 10 0RF Rx Instructions: may leave on for up to 12 hrs Stand Alone Forms: Work/School Release
[2023-01-02] MEDS: Doxycycline Monohydrate 100 MG CAPSULE PO (13:19)
[2023-01-02] MEDS: Lidocaine HCl 1 % MPF 5 ML VIAL SUBCUT ×2 (13:19)
--- NOTE | 2023-01-02 14:32 | PC.NURSE ---
ABSCESS WAS LANCED AND DRAINED, PACKING AND DRESSING WAS PLACED, PLAN FOR RETURN IN 2 DAYS
== END 2023-01-02 14:39 | disposition home or self-care (01) ==
PROVIDERS: Emergency Provider Emergency Medicine; PCP Nurse Practitioner Family
DX: L02.31 Cutaneous abscess of buttock (principal)
CPT/HCPCS: 10060; 99281; 99284

== ENCOUNTER 2023-01-04 11:22 | Emergency (ER) | payer MEDICAID, SELFPAY ==
[2023-01-04 12:09] VITALS: BP 116/80; PULSE 94; RESP 18; TEMP 37; O2SAT 95; BMI 27.5
--- NOTE | 2023-01-04 12:10 | ED_ITS ---
HPI - General Adult General Chief complaint: Wound/Laceration Stated complaint: Packing removal Time Seen by Provider: 01/04/23 12:16 Source: patient, RN notes reviewed and old records reviewed Mode of arrival: ambulatory History of Present Illness HPI narrative: 62-year-old male with no significant past medical history presenting to ED for buttock abscess check, states packing fell out today s/p I&D and the ED on 01/02/23. Patient reports compliance with previously prescribed antibiotics. Admits to mild drainage on dressings during changing. Denies fever, chills Onset (ago): day(s) Related Data Previous Rx's Medication Instructions Recorded acetaminophen 500 mg tablet 500 mg PO Q6H PRN pain or fever 01/09/21 (Tylenol Extra Strength) #20 tabs cyclobenzaprine 5 mg tablet 5 mg PO Q8H PRN pain (scale score 01/09/21 7-10) 5 days #14 tabs lidocaine 5 % topical patch 1 patch topical DAILY PRN pain #30 01/09/21 (Lidoderm) ea naproxen 500 mg tablet 500 mg PO BID PRN pain 10 days #20 01/09/21 tabs cyclobenzaprine 10 mg tablet 10 mg PO TID PRN muscle spasm #14 11/11/21 tabs lidocaine 4 % topical patch 1 patch topical DAILY PRN pain #10 11/11/21 ea acetaminophen 500 mg tablet 1,000 mg PO QID PRN pain #30 tabs 01/02/23 doxycycline hyclate 100 mg capsule 100 mg PO BID 7 days #14 caps 01/02/23 oxycodone 5 mg tablet 5 mg PO Q6H PRN pain #10 tabs 01/02/23 Allergies Allergy/AdvReac Type Severity Reaction Status Date / Time cephalexin [From KEFLEX] Allergy Unknown RASH Verified 01/04/23 12:09 naproxen [NAPROXEN] Allergy Unknown RASH Verified 01/04/23 12:09 sulfamethoxazole Allergy Unknown RASH Verified 01/04/23 12:09 [From BACTRIM] trimethoprim [From BACTRIM] Allergy Unknown RASH Verified 01/04/23 12:09 Review of Systems Review of Systems: Constitutional: No Fever, No Chills ENT/Mouth: No Ear Pain, No Nasal Congestion, No sore throat, No Rhinorrhea, No Swallowing Difficulty Cardiovascular: No Chest Pain, No SOB Respiratory: No Cough Gastrointestinal: No Nausea, No Vomiting, No Diarrhea, No Constipation, No Abdominal pain Genitourinary: No Dysuria, No Urinary Frequency, No Hematuria Musculoskeletal: No joint pain, No Myalgias, No Joint Swelling Skin: +Skin Lesions, No rash Neuro: No Weakness Yes all other systems are reviewed and are negative Constitutional: Constitutional: Reports as per [facility] Past Medical History Attestation statement: The following information was validated with the patient. Source: old records reviewed Medical History HTN (hypertension) Social History Social History Patient Tobacco Use Status: Never used Tobacco Advance Directives: No Advance Directives Information Provided: No Physical Exam ED Vital Signs: Vital Signs - 24 hr 01/04/23 12:09 Temperature 98.6 F Pulse Rate 94 Respiratory Rate 18 Blood Pressure 116/80 Pulse Oximetry 95 Oxygen Delivery Method Room Air BMI result Body Mass Index 27.5 Const General: cooperative, healthy appearing and no acute distress Orientation/consciousness: patient oriented x3 Limitations: no limitations HENMT Head: Yes normal to inspection and Yes atraumatic Ears: hearing grossly normal bilaterally General nose exam: Normal external nose present Face and sinus: Yes normal facial exam Eyes General: appearance normal, both eyes and all related structures EOM: EOMs intact bilaterally Neck Neck: Yes normal visual inspection and Yes no meningeal signs Resp Effort & Inspection: normal respiratory effort and no respiratory distress Cardio Rate: regular rate GI Other: + healing abscess noted to left buttock, no packing and placed, no surrounding erythema/warmth, no fluctuance/induration. Scant amount of drainage expressed Inspection: Yes normal to inspection Skin Rashes: no rashes Neuro General: patient oriented x3, tone normal and no meningeal signs Gait exam (Neuro): Normal gait present Extrem General: Yes normal to inspection Course Course Course Narrative: RME: 62 yold presents to the ED for buttock abscess wound check. patient states packing felt out this morning. Abscess was cut this past thursday. Medical Decision Making Medical Decision Making MDM Narrative: 62-year-old male with no significant past medical history presenting to ED for buttock abscess check, states packing fell out today s/p I&D and the ED on 01/02/23. On exam vital signs stable, NAD, nontoxic appearing, physical exam as above with appropriate healing buttock abscess. Scant amount of expressible drainage. No fluctuance/induration or evidence of cellulitis. No evidence of Surjit's gangrene Recommended continuation of previously prescribed antibiotics and PCP follow-up Results discussed with patient including worrisome signs and symptoms and strict return precautions, and when to return to the emergency department. They verbalized understanding and feel safe for discharge at this time. Differential Diagnosis Differential Diagnoses: The differential diagnosis associated with the presentation includes As above External Record Review External record reviewed: Inpatient record, Office record, Outpatient record, Prior outpatient labs, Prior outpatient radiology, Primary care record and Outside ED record Tests considered The following testing was considered but not selected: As above Discharge Plan Discharge Clinical Impression: Wound check, abscess Patient Disposition: Home, Self-Care Instructions: Abscess (ED) Additional Instructions: Continue taking previously prescribed antibiotics Apply warm compresses/warm Sitz baths Follow-up with her doctor If symptoms persist or worsen, area continues to have drainage, you fever or difficulty having bowel movements return to the ED Prescriptions: No Action acetaminophen [Tylenol Extra Strength] 500 mg tablet 500 mg PO Q6H PRN (Reason: pain or fever) Qty: 20 0RF lidocaine [Lidoderm] 5 % adhesive patch,medicated 1 patch topical DAILY MDD remove after 12 hours PRN (Reason: pain) Qty: 30 0RF Rx Instructions: leave on most painful area for up to 12 hrs naproxen 500 mg tablet 500 mg PO BID PRN (Reason: pain) 10 Days Qty: 20 0RF cyclobenzaprine 5 mg tablet 5 mg PO Q8H PRN (Reason: pain (scale score 7-10)) 5 Days Qty: 14 0RF cyclobenzaprine 10 mg tablet 10 mg PO TID PRN (Reason: muscle spasm) Qty: 14 0RF lidocaine 4 % adhesive patch,medicated 1 patch topical DAILY PRN (Reason: pain) Qty: 10 0RF Rx Instructions: may leave on for up to 12 hrs doxycycline hyclate 100 mg capsule 100 mg PO BID 7 Days Qty: 14 0RF acetaminophen 500 mg tablet 1,000 mg PO QID PRN (Reason: pain) Qty: 30 0RF oxycodone 5 mg tablet 5 mg PO Q6H PRN (Reason: pain) Qty: 10 0RF Rx Instructions: Partial Fill upon patient request. Referrals: Claire Hidalgo NP [Primary Care Provider] - 1 week Stand Alone Forms: Work/School Release Interventions: ED Discharge Assessment Last Done: 01/04/23 12:49 Discharge Date/Time: 01/04/23 12:51
== END 2023-01-04 12:51 | disposition home or self-care (01) ==
PROVIDERS: Emergency Provider Internal Medicine; PCP Nurse Practitioner Family
DX: Z48.00 Encounter for change or removal of nonsurgical wound dressing (principal); Z79.899 Other long term (current) drug therapy
CPT/HCPCS: 99282

== ENCOUNTER 2023-05-04 13:14 | Outpatient (AMB) | payer MEDICAID, SELFPAY ==
--- NOTE | 2023-05-04 13:21 | MHC.OFFVIS ---
Intake Vital Signs 05/04/23 13:28 Pulse 104 H Intake Visit Reasons: Colonoscopy Screening Intake Note: Patient new consult for 2nd pre colonoscopy screening. Patient abdominal bloating, bloody hemorrhoids and denies any other GI issues. 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 Accompanied by: Self / Same As Patient Allergies cephalexin [From KEFLEX] Allergy (Unknown, Verified 05/04/23 13:21) RASH naproxen [NAPROXEN] Allergy (Unknown, Verified 05/04/23 13:21) RASH sulfamethoxazole [From BACTRIM] Allergy (Unknown, Verified 05/04/23 13:21) RASH trimethoprim [From BACTRIM] Allergy (Unknown, Verified 05/04/23 13:21) RASH Medication List - Last Reconciled 05/04/23 by Merle Molina PA-C acetaminophen (Tylenol Extra Strength) 500 mg PO Q6H PRN acetaminophen 1,000 mg (2 x 500 mg) PO QID PRN cyclobenzaprine 5 mg PO Q8H PRN 5 days cyclobenzaprine 10 mg PO TID PRN doxycycline hyclate 100 mg PO BID 7 days lidocaine 5% (Lidoderm) 1 patch topical DAILY PRN MDD remove after 12 hours lidocaine 4% 1 patch topical DAILY PRN naproxen 500 mg PO BID PRN 10 days HPI HPI Comments History of Present Illness Details A 63 y/o male hx colon adenomas- 2019-recommend 3 year repeat He has a fairly normal bowel pattern HX hemorrhoids - flare at times- and bleed. he says they have been very bothersome over the years- he is not using any remedy topically. He does use Metamucil. Appetite is good, no acid reflux No respiratory issues or cardiac- No nausea, vomiting, hematemesis, fever or chills [facility] Medical History HTN (hypertension) Social History (Updated 05/04/23 @ 13:47 by Merle Molina PA-C) Household Members: Family Alcohol intake: current Alcohol intake frequency: 3 or more drinks per day Patient Tobacco Use Status: Current everyday Tobacco user Current occupational status: employed Review of Systems Const All systems reviewed & are unremarkable except as noted in HPI and below Denies chills, Reports fatigue, Denies fever(s), Denies weight gain and Denies weight loss Card Denies chest pain and Denies dyspnea Resp Denies dyspnea GI Denies abdominal pain and Denies other (hemorrhoids) Endo Reports fatigue Physical Exam Vital Signs: Last Vital Signs Pulse 104 H 05/04/23 13:28 Const General: cooperative, healthy appearing, comfortable and no acute distress Orientation/consciousness: patient oriented x3 Limitations: no limitations Eyes Sclerae: sclerae normal Resp Effort & Inspection: normal respiratory effort and able to speak in complete sentences Auscultation: clear to auscultation bilaterally Cardio Rate: regular rate Rhythm: regular rhythm Heart sounds: S1 normal heart sound present and S2 normal heart sound present GI Palpation (GI): Soft to palpation and nontender Auscultation: normal bowel sounds Skin General skin exam: no rashes or lesions noted Neuro General: patient oriented x3 Extrem General: Yes full ROM Psych Appearance: grossly normal and well kempt Mental Status: mental status grossly normal Speech and movement: Normal speech and movement present and Clear speech present Affect: normal affect Attitude: cooperative Thought process: Normal thought process present Thought content: Normal thought content present Insight: Good insight present (Psych) Judgement: Good judgement present (Psych) Assessment & Plan Assessment & Plan (1) Hemorrhoids: Code(s): K64.9 - Unspecified hemorrhoids Plan: Maintain high-fiber diet Metamucil A hydrocortisone cream CA Refer to surgery for consult (2) History of colon polyps: Code(s): Z86.010 - Personal history of colonic polyps Plan: Polyp surveillance colonoscopy Plan Polyp surveillance colonoscopy MG split Maintain high-fiber diet Metamucil A hydrocortisone cream CA Refer to surgery for consult Orders: Orders Colonoscopy - GI Use Only Today K64.9 - Unspecified hemorrhoids, Z86.010 - Personal history of colonic polyps Referrals General Surgery Referral K64.9 - Unspecified hemorrhoids Medications: New hydrocortisone 2.5% (Proctozone-HC) apply CA BID prn 1 appl [place] BID PRN 30 grams 3RF hemorrhoids bisacodyl (Dulcolax (bisacodyl)) Take 4 tablets by mouth at 12:00pm the day before your procedure. 20 mg (4 x 5 mg) PO ONCE 1 day 4 tabs 0RF colonoscopy prep Z12.11 - Encounter for screening for malignant neoplasm of colon polyethylene glycol 3350 (Miralax) Take as directed by mouth the day before your procedure. 238 grams PO ONCE 1 day PRN 238 grams 0RF laxative effect Patient Instructions: Polyp surveillance colonoscopy MiraLax Gatorade split prep-literature given Maintain high-fiber diet Metamucil A hydrocortisone cream CA Refer to surgery for consult Coding Level of Care Code New Pt Level 3 (53260) Diagnoses Hemorrhoids K64.9 History of colon polyps Z86.010 Time Spent (min) 25
[2023-05-04 13:28] VITALS: PULSE 104
== END 2023-05-04 14:33 | disposition home or self-care (01) ==
PROVIDERS: PCP Nurse Practitioner Family; Visit Provider Physician Assistant
DX: K64.9 Unspecified hemorrhoids (principal); Z86.010 Personal history of colon polyps
CPT/HCPCS: 99203

== ENCOUNTER → 2023-05-04 13:14 | Outpatient (BNVA) | payer MEDICAID, SELFPAY | PROVIDERS: PCP Nurse Practitioner Family; Visit Provider Physician Assistant ==

== ENCOUNTER 2023-05-25 13:35 | Outpatient (AMB) | payer MEDICAID, SELFPAY ==
--- NOTE | 2023-05-25 13:48 | A.OFFVIS_ITS ---
Intake Vital Signs 05/25/23 13:54 Height 5 ft 6 in BP 122/72 Blood Pressure Location Rt brachial Position Sitting Pulse 94 Intake Visit Reasons: Hemorrhoids Intake Note: This patient presents for an assessment for hemorrhoids. Patient c/o; reports rectal bleeding, reports no pain, reports no itichiness. 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 Accompanied by: Self / Same As Patient Allergies cephalexin [From KEFLEX] Allergy (Unknown, Verified 05/25/23 13:52) RASH naproxen [NAPROXEN] Allergy (Unknown, Verified 05/25/23 13:52) RASH sulfamethoxazole [From BACTRIM] Allergy (Unknown, Verified 05/25/23 13:52) RASH trimethoprim [From BACTRIM] Allergy (Unknown, Verified 05/25/23 13:52) RASH Medication List - Last Reconciled 05/25/23 by Anibal España MD acetaminophen (Tylenol Extra Strength) 500 mg PO Q6H PRN acetaminophen 1,000 mg (2 x 500 mg) PO QID PRN amlodipine 5 mg PO DAILY bisacodyl (Dulcolax (bisacodyl)) 20 mg (4 x 5 mg) PO ONCE 1 day cyclobenzaprine 5 mg PO Q8H PRN 5 days cyclobenzaprine 10 mg PO TID PRN doxycycline hyclate 100 mg PO BID 7 days hydrocortisone 2.5% (Proctozone-HC) 1 appl [place] BID PRN irbesartan 150 mg PO DAILY lidocaine 5% (Lidoderm) 1 patch topical DAILY PRN MDD remove after 12 hours lidocaine 4% 1 patch topical DAILY PRN naproxen 500 mg PO BID PRN 10 days polyethylene glycol 3350 (Miralax) 238 grams PO ONCE PRN 1 day HPI Hemorrhoids HPI Details 63-year-old male referred for hemorrhoi ds. He said if he has had hemorrhoids for over 10 years. He had minimal symptoms before. However, for the past few years, he says that he would have some bright blood seen on wiping. He says that once in a while, he would feel that hemorrhoids would ?come out?. He says that this goes back in without him pushing this manually. He denies significant pain. He denies being constipated. He says he does take Metamucil regularly. He is also waiting for a colonoscopy. His last colonoscopy was about 3-4 years ago. [facility] Medical History (Updated 05/25/23 @ 14:26 by Anibal España MD) Bleeding hemorrhoids HTN (hypertension) Social History Household Members: Family Alcohol intake: current Alcohol intake frequency: 3 or more drinks per day Patient Tobacco Use Status: Current everyday Tobacco user Current occupational status: employed Review of Systems Const Denies chills and Denies fever(s) Card Denies chest pain, Denies dyspnea and Denies dyspnea on exertion Resp Denies cough, Denies dyspnea and Denies dyspnea on exertion GI Reports hematochezia and Denies change in bowel habits Denies hematuria and Denies difficulty urinating Musc Denies back pain and Denies limited range of motion Neuro Denies focal weakness and Denies convulsions Psych Denies depression and Denies mood swings Physical Exam Vital Signs: Last Vital Signs Pulse 94 05/25/23 13:54 BP 122/72 05/25/23 13:54 Const General: comfortable and no acute distress Orientation/consciousness: patient oriented x3 Neck Neck: Yes no lymphadenopathy Resp Auscultation: clear to auscultation bilaterally Cardio Rhythm: regular rhythm GI Other: Rectal exam shows small external hemorrhoids, nonthrombosed, anoscopy done Palpation (GI): Soft to palpation, nontender and no guarding Neuro General: patient oriented x3 Office Procedures Anoscopy He was in marky-knife position. The anoscope was gently inserted. A full examination of the anal canal was done. He also had small internal hemorrhoids along with external hemorrhoid. There were no other lesions. There was no obvious fissure. There was no induration on digital exam. There was no bleeding. He had good sphincter tone [id number] Assessment & Plan Assessment & Plan (1) Bleeding hemorrhoids: Code(s): K64.9 - Unspecified hemorrhoids Plan: He describes occasional bright blood per rectum seen on wiping as well as prolapse. Examination and anoscopy shows small internal and external hemorrhoids. There were no other lesions He wants to avoid hemorrhoidectomy. I am going to put him on a trial of steroid suppositories. I will see him in the office in about 2 months. He is also awaiting for a colonoscopy by GI. Coding Level of Care Code New Pt Level 3 (48364) Diagnoses Bleeding hemorrhoids K64.9 CPT Codes Details - CPT: 78621-[id number] ([id number])
[2023-05-25 13:54] VITALS: BP 122/72; PULSE 94
== END 2023-05-25 14:25 | disposition home or self-care (01) ==
PROVIDERS: PCP Nurse Practitioner Family; Referring Provider Physician Assistant; Visit Provider Surgery
DX: K64.9 Unspecified hemorrhoids (principal)
CPT/HCPCS: 46600; 99203

== ENCOUNTER → 2023-05-25 13:35 | Outpatient (BNVA) | payer MEDICAID, SELFPAY | PROVIDERS: PCP Nurse Practitioner Family; Referring Provider Physician Assistant; Visit Provider Surgery | DX: K64.9 Unspecified hemorrhoids (principal) | CPT/HCPCS: 46600 ==

== ENCOUNTER 2023-07-01 09:21 | Emergency (ER) | payer MEDICAID, SELFPAY ==
--- NOTE | ~2023-07-01 | XR_ITS ---
EXAMINATION: XR SHOULDER, RIGHT CLINICAL INFORMATION: Pain and numbness of the right shoulder and arm COMPARISON: None available. TECHNIQUE: AP external rotation, Grashey, scapular Y, and axillary views of the right shoulder. FINDINGS: Clavicle appears intact. Right humeral head and neck appear unremarkable with no fracture, dislocation, or erosive process seen. No evidence for abnormal soft tissue calcifications. There is slight narrowing of the right glenohumeral joint space. XR/XR shoulder RT min 2V IMPRESSION: No acute process. Slight narrowing of the right glenohumeral joint space.
[2023-07-01 09:30] VITALS: BP 155/52; PULSE 87; RESP 17; TEMP 36.6; O2SAT 98; BMI 25.8
--- NOTE | 2023-07-01 09:48 | ED.EXTPRO ---
HPI - Extremity Problem General Chief complaint: Extremity Injury, Upper Stated complaint: Numbness right arm Time Seen by Provider: 07/01/23 09:48 Source: patient Mode of arrival: ambulatory Limitations: no limitations History of Present Illness HPI Narrative: Patient is a 63-year-old male presenting to the emergency department with complaint of right shoulder pain as it which radiates down right arm as well as numbness going down right arm to right hand. Patient reports that symptoms began 1-2 months ago and have progressively worsened. 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 He denies any fall or other trauma precipitating his symptoms. He has not taken any [id number] medications for his symptoms. He reports his range of motion with abduction is decreased. MD Complaint: extremity pain and joint pain Onset (ago): month(s) Pain Consistency: constant Location: right and upper extremity Severity scale (1-10): 8 Quality: aching Radiation: distal Relieving factors: rest Exacerbating factors: range of motion, palpation and other (movement) Associated symptoms: denies other symptoms Related Data Home Medications Medication Instructions Recorded Confirmed amlodipine 5 mg tablet 5 mg PO DAILY 05/25/23 05/25/23 irbesartan 150 mg tablet 150 mg PO DAILY 05/25/23 05/25/23 Previous Rx's Medication Instructions Recorded acetaminophen 500 mg tablet 500 mg PO Q6H PRN pain or fever 01/09/21 (Tylenol Extra Strength) #20 tabs cyclobenzaprine 5 mg tablet 5 mg PO Q8H PRN pain (scale score 01/09/21 7-10) 5 days #14 tabs lidocaine 5 % topical patch 1 patch topical DAILY PRN pain #30 01/09/21 (Lidoderm) ea naproxen 500 mg tablet 500 mg PO BID PRN pain 10 days #20 01/09/21 tabs cyclobenzaprine 10 mg tablet 10 mg PO TID PRN muscle spasm #14 11/11/21 tabs lidocaine 4 % topical patch 1 patch topical DAILY PRN pain #10 11/11/21 ea acetaminophen 500 mg tablet 1,000 mg (2 x 500 mg) PO QID PRN 01/02/23 pain #30 tabs doxycycline hyclate 100 mg capsule 100 mg PO BID 7 days #14 caps 01/02/23 bisacodyl 5 mg tablet,delayed 20 mg (4 x 5 mg) PO ONCE 05/04/23 release (Dulcolax (bisacodyl)) colonoscopy prep 1 day #4 tabs hydrocortisone 2.5 % topical cream 1 appl KS BID PRN hemorrhoids #30 05/04/23 with perineal applicator grams (Proctozone-HC) polyethylene glycol 3350 17 238 g PO ONCE PRN laxative effect 05/04/23 gram/dose oral powder (Miralax) 1 day #238 grams hydrocortisone acetate 25 mg 25 mg KS DAILY #24 ea 05/25/23 rectal suppository (Anucort-HC) cyclobenzaprine 5 mg tablet 5 mg PO TID PRN muscle spasm #10 07/01/23 tabs lidocaine 4 % topical patch 1 patch topical DAILY PRN pain #15 07/01/23 ea prednisone 20 mg tablet 40 mg (2 x 20 mg) PO DAILY #8 tabs 07/01/23 Allergies Allergy/AdvReac Type Severity Reaction Status Date / Time cephalexin [From KEFLEX] Allergy Unknown RASH Verified 07/01/23 09:30 naproxen [NAPROXEN] Allergy Unknown RASH Verified 07/01/23 09:30 sulfamethoxazole Allergy Unknown RASH Verified 07/01/23 09:30 [From BACTRIM] trimethoprim [From BACTRIM] Allergy Unknown RASH Verified 07/01/23 09:30 Review of Systems Review of Systems: As per HPI Yes all other systems are reviewed and are negative Constitutional: Constitutional: Reports as per HPI [facility] Past Medical History Medical History (Updated 07/01/23 @ 11:45 by Katerina Echeverria NP) Bleeding hemorrhoids HTN (hypertension) Social History Social History Household Members: Family Alcohol intake: current Alcohol intake frequency: 3 or more drinks per day Patient Tobacco Use Status: Current everyday Tobacco user Smoked in Last 30 Days: Yes Use of substances other than those prescribed or required for medical reasons: No Advance Directives: No Advance Directives Information Provided: No Current occupational status: employed Physical Exam Vital Signs: Vital Signs: Last Vital Signs Temp 98 F 07/01/23 09:30 Pulse 87 07/01/23 09:30 Resp 17 07/01/23 09:30 BP 155/52 H 07/01/23 09:30 Pulse Ox 98 07/01/23 09:30 O2 Del Method Room Air 07/01/23 09:30 BMI result Body Mass Index 25.8 Vital signs have been reviewed and appear to be correct. Blood pressure elevated. Heart rate normal. Respiratory rate normal. Temperature normal. Oxygen saturation normal. Const: General: cooperative, healthy appearing and no acute distress Orientation/consciousness: oriented to person, oriented to place, oriented to time and patient oriented x3 Limitations: no limitations HEENT: Head: Yes normocephalic and Yes atraumatic Ears: external ears normal General nose exam: Normal external nose present Face and sinus: Yes face symmetric Mouth: oropharynx normal and moist mucous membranes Throat: Yes uvula midline Eyes: Pupils: Equal, round and reactive pupils present Neck: Neck: Yes normal visual inspection and Yes supple Resp: Effort & Inspection: normal respiratory effort and able to speak in complete sentences Auscultation: clear to auscultation bilaterally Cardio: Rate: regular rate Rhythm: regular rhythm Heart sounds: S1 normal heart sound present and S2 normal heart sound present GI: Palpation (GI): Soft to palpation and nontender Auscultation: normoactive bowel sounds : General: Yes no CVA tenderness Back/Spine/Pelvis: Back: no CVA tenderness Skin: General skin exam: elasticity normal and turgor normal Neuro: General: oriented to person, oriented to place, oriented to time, patient oriented x3, moves all extremities, no focal motor deficits and CN's II-XI intact bilaterally Cranial nerves: Yes Equal, round and reactive pupils present Cognition (Neuro): normal cognition Motor exam (neuro): 5/5 motor strength present throughout Extrem: General: Yes full ROM, Yes normal exam except as noted, Yes no pedal edema and Yes no calf tenderness Right upper extremity: normal to inspection, normal capillary refill, shoulder/upper arm Details: normal to inspection, tenderness Location: of the A-C joint, axillary nerve sensory function normal and abnormal ROM Details: pain with active ROM Details: in ADduction and external rotation-; no swelling, no ecchymosis and no unusual warmth, elbow/forearm Details: normal to inspection and normal ROM; no tenderness, wrist Details: normal to inspection, normal ROM and radial pulse present and Extremity exam: right hand Details: normal to inspection, normal capillary refill and normal ROM of fingers Psych: Mental Status: mental status grossly normal Affect: normal affect Thought process: Normal thought process present Medications Administered Discontinued Medications Generic Name Dose Route Start Last Admin Trade Name Klever PRN Reason Stop Dose Admin Acetaminophen 975 mg 07/01/23 10:07 07/01/23 10:14 Acetaminophen 325 Mg Tablet PO 07/01/23 10:08 975 mg ONCE ONE Administration Ibuprofen 600 mg 07/01/23 10:07 07/01/23 10:14 Ibuprofen 600 Mg Tablet PO 07/01/23 10:08 600 mg ONCE ONE Administration Prednisone 40 mg 07/01/23 10:07 07/01/23 10:14 Prednisone 20 Mg Tablet PO 07/01/23 10:08 40 mg ONCE ONE Administration Medical Decision Making Medical Decision Making [facility] Narrative: Patient is a 63-year-old male presenting to the emergency department with complaint of right shoulder pain as it which radiates down right arm as well as numbness going down right arm to right hand. On exam patient is awake, A+Ox3, VS WNL, afebrile, normal neurological exam without focal deficits, physical exam findings as above. Given reported symptoms and physical exam findings, initial differential includes rotator cuff strain, rotator cuff tendinopathy, osteoarthritis. X-ray notable for no acute process. My interpretation is in agreement with the radiologist's interpretation. Will treat patient with short course of prednisone, cyclobenzaprine, topical lidocaine patches. Instructed patient to follow-up with primary care provider as he may require physical therapy given that his job involves repetitive motion. Return precautions discussed. Patient verbalized understanding of and agreement with plan. Differential Diagnosis Differential Diagnoses: The differential diagnosis associated with the presentation includes As per MDM. Independent Interpretation I performed an independent interpretation of an: Plain X-Ray Interpretation: No acute process Radiology Impression Discussion of test interpretation with radiology: I have reviewed the radiologist's reading. Radiologist Impression: XR/XR shoulder RT min 2V IMPRESSION: No acute process. Slight narrowing of the right glenohumeral joint space. External Record Review External record reviewed: Inpatient record, Office record and Outpatient record Prescription Management I considered prescription management with: Pain Medication and Other Discharge Plan Discharge Clinical Impression: Tendinopathy of right rotator cuff Patient Disposition: Home, Self-Care Instructions: Rotator Cuff Injury (ED), Rotator Cuff Tendinitis (ED), Rotator Cuff Injury Exercises (DC) Additional Instructions: You were evaluated in the emergency department today for right shoulder pain and arm numbness. Your symptoms are likely related to rotator cuff tendinopathy. You are being treated with a course of steroids called prednisone to decrease inflammation, you are also being prescribed muscle relaxer called cyclobenzaprine as well as topical lidocaine patches which you can wear for up to 12 hours in a 24 hour period. Do not apply heat directly over the patches. Please schedule follow-up appointment with your primary care provider as you may require physical therapy to improve your symptoms. Return to the emergency department if you develop worsening pain, new weakness, chest pain, palpitations, shortness of breath or any other concerning symptoms. Prescriptions: New prednisone 20 mg tablet 40 mg PO DAILY Qty: 8 0RF cyclobenzaprine 5 mg tablet 5 mg PO TID PRN (Reason: muscle spasm) Qty: 10 0RF lidocaine 4 % adhesive patch,medicated 1 patch topical DAILY PRN (Reason: pain) Qty: 15 0RF No Action acetaminophen [Tylenol Extra Strength] 500 mg tablet 500 mg PO Q6H PRN (Reason: pain or fever) Qty: 20 0RF lidocaine [Lidoderm] 5 % adhesive patch,medicated 1 patch topical DAILY MDD remove after 12 hours PRN (Reason: pain) Qty: 30 0RF Rx Instructions: leave on most painful area for up to 12 hrs naproxen 500 mg tablet 500 mg PO BID PRN (Reason: pain) 10 Days Qty: 20 0RF cyclobenzaprine 5 mg tablet 5 mg PO Q8H PRN (Reason: pain (scale score 7-10)) 5 Days Qty: 14 0RF cyclobenzaprine 10 mg tablet 10 mg PO TID PRN (Reason: muscle spasm) Qty: 14 0RF lidocaine 4 % adhesive patch,medicated 1 patch topical DAILY PRN (Reason: pain) Qty: 10 0RF Rx Instructions: may leave on for up to 12 hrs doxycycline hyclate 100 mg capsule 100 mg PO BID 7 Days Qty: 14 0RF acetaminophen 500 mg tablet 1,000 mg PO QID PRN (Reason: pain) Qty: 30 0RF amlodipine 5 mg tablet 5 mg PO DAILY irbesartan 150 mg tablet 150 mg PO DAILY hydrocortisone acetate [Anucort-HC] 25 mg suppository 25 mg KS DAILY Qty: 24 2RF hydrocortisone [Proctozone-HC] 2.5 % cream with perineal applicator 1 appl KS BID PRN (Reason: hemorrhoids) Qty: 30 3RF Rx Instructions: apply KS BID prn bisacodyl [Dulcolax (bisacodyl)] 5 mg tablet,delayed release (DR/EC) 20 mg PO ONCE 1 Days Qty: 4 0RF Rx Instructions: Take 4 tablets by mouth at 12:00pm the day before your procedure. polyethylene glycol 3350 [Miralax] 17 gram/dose powder 238 g PO ONCE PRN (Reason: laxative effect) 1 Days Qty: 238 0RF Rx Instructions: Take as directed by mouth the day before your procedure. Stand Alone Forms: Work/School Release
[2023-07-01] MEDS: predniSONE 20 MG TABLET 40 MG PO (10:14)
[2023-07-01] MEDS: Ibuprofen 600 MG TABLET PO (10:14)
[2023-07-01] MEDS: Acetaminophen 325 MG TABLET 975 MG PO (10:14)
--- NOTE | 2023-07-01 10:16 | PC.NURSE ---
medication administered per provider order - will reassess.
--- NOTE | 2023-07-01 10:44 | PC.NURSE ---
pt to xray at this time.
--- NOTE | 2023-07-01 11:29 | PC.NURSE ---
pain level reassessed - pain decreased to 4/10 post medication administration. awaiting for xray results at this time.
== END 2023-07-01 12:36 | disposition home or self-care (01) ==
PROVIDERS: Emergency Provider Emergency Medicine; PCP Nurse Practitioner Family
DX: M75.31 Calcific tendinitis of right shoulder (principal); F17.200 Nicotine dependence, unspecified, uncomplicated; Z71.6 Tobacco abuse counseling; Z79.899 Other long term (current) drug therapy
CPT/HCPCS: 73030; 99283; 99284

== ENCOUNTER 2025-03-02 11:32 | Emergency (ER) | payer SELFPAY ==
--- NOTE | ~2025-03-02 | XR_ITS ---
EXAMINATION: XR CHEST CLINICAL INFORMATION: chest pain COMPARISON: November 11, 2021 TECHNIQUE: Frontal view of the chest was obtained. FINDINGS: Lungs: No focal consolidation or evidence of pulmonary edema. Pleura: No pleural effusion or pneumothorax. Heart/Mediastinum: Cardiomediastinal silhouette is within limits. Bones/Soft Tissues: No acute findings. XR/XR chest 1V IMPRESSION: No acute abnormality. Electronically signed by: Annalee Pollard MD 03/02/2025 02:43 PM EDT
--- NOTE | 2025-03-02 11:34 | ECG_ITS ---
Test Reason : chest pain Blood Pressure : */* mmHG Vent. Rate : 75 BPM Atrial Rate : 75 BPM P-R Int : 132 ms QRS Dur : 100 ms QT Int : 388 ms P-R-T Axes : 60 55 66 degrees QTcB Int : 433 ms Normal sinus rhythm Possible Left atrial enlargement Incomplete right bundle branch block Minimal voltage criteria for LVH, may be normal variant ( Finn product ) Borderline ECG When compared with ECG of 11-Nov-2021 11:36, No significant change was found Referred By: Dora Cunningham Electronically Signed By: KARYN MAZARIEGOS MD
--- NOTE | 2025-03-02 11:40 | ED_ITS ---
HPI - Chest Pain General Chief Complaint: Chest Pain Stated Complaint: Chest pain Time Seen by Provider: 03/02/25 13:43 Source: patient and old records reviewed Mode of arrival: ambulatory Limitations: no limitations History of Present Illness ED Provider: BETO ZAMORA narrative: 64 yo male with PMH of HTN not on medications for 1 year due to lack of PCP. 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 He notes no associated dyspnea, nausea, diaphoresis. He only had pain on R side of chest no radiation. It came and went three times each lasting 2 minutes. He has no hx of CAD but his Dad in his 60s from [place]. He did cocaine 2 days ago. He took a friends random BP medication - lisinopril. He has no symptoms now. MD complaint: chest pain Onset (ago): day(s) (this AM) Timing of current episode: constant Prior episodes: Yes Onset: during rest Pain location: right chest Pain radiation: none Severity: moderate Quality: sharp Relieving factors: nothing Exacerbating factors: nothing Treatment prior to arrival: none Related Data Home Medications ?Medication ?Instructions ?Recorded ?Confirmed amlodipine 5 mg tablet 5 mg PO DAILY 05/25/2305/25 irbesartan 150 mg tablet 150 mg PO DAILY 05/25/23 Previous Rx's ?Medication ?Instructions ?Recorded acetaminophen 500 mg tablet 500 mg PO Q6H PRN pain or fever 01/09/21 (Tylenol Extra Strength) #20 tabs cyclobenzaprine 5 mg tablet 5 mg PO Q8H PRN pain (scal e score 01/09/21 7-10) 5 days #14 tabs lidocaine 5 % topical patch 1 patch topical DAILY PRN pain #30 01/09/21 (Lidoderm) ea naproxen 500 mg tablet 500 mg PO BID PRN pain 10 da ys #20 01/09/21 tabs cyclobenzaprine 10 mg tablet 10 mg PO TID PRN muscle s pasm #14 11/11/21 tabs lidocaine 4 % topical patch 1 patch topical DAILY PRN pain #10 11/11/21 ea acetaminophen 500 mg tablet 1,000 mg (2 x 500 mg) PO Q ID PRN 01/02/23 pain #30 tabs doxycycline hyclate 100 mg capsule 100 mg PO BID 7 day s #14 caps 01/02/23 bisacodyl 5 mg tablet,delayed 20 mg (4 x 5 mg) PO ONCE 05/04/23 release (Dulcolax (bisacodyl)) colonoscopy prep 1 day #4 tabs hydrocortisone 2.5 % topical cream 1 appl MI BID PRN h emorrhoids #30 05/04/23 with perineal applicator grams (Proctozone-HC) polyethylene glycol 3350 17 238 g PO ONCE PRN laxative effect 05/04/23 gram/dose oral powder (Miralax) 1 day #238 grams hydrocortisone acetate 25 mg 25 mg MI DAILY #24 ea rectal suppository (Anucort-HC) cyclobenzaprine 5 mg tablet 5 mg PO TID PRN muscle spa sm #10 07/01/23 tabs lidocaine 4 % topical patch 1 patch topical DAILY PRN pain #15 07/01/23 ea prednisone 20 mg tablet 40 mg (2 x 20 mg) PO DAILY # 8 tabs 07/01/23 amlodipine 5 mg tablet 5 mg PO DAILY #60 tabs 03/02 hydrochlorothiazide 12.5 mg tablet 12.5 mg PO DAILY #6 0 tabs 03/02/25 Allergies Allergy/AdvReac Type Severity Reaction Status Date / Time cephalexin (From KEFLEX) Allergy Unknown RASH Verified 03/02/25 11:42 naproxen (NAPROXEN) Allergy Unknown RASH Verified 03/02/25 11:42 sulfamethoxazole (From Allergy Unknown RASH Verified 03/02/25 11:42 BACTRIM) trimethoprim (From BACTRIM) Allergy Unknown RASH Verified 03/02/25 11:42 Review of Systems 2 Review of Systems: Constitutional : No Weight loss, No Fever, No Chills ENT/Mouth : No sore throat, No Rhinorrhea Eyes: No Eye Pain, No Swelling Cardiovascular : pos Chest Pain, no SOB, no Dyspnea on Exertion, No Orthopnea, No Edema, No Palpitations Respiratory : No Cough, No Sputum Gastrointestinal : no Nausea, No Vomiting, No Diarrhea, No abdominal Pain, No Hematochezia, No Melena Genitourinary : No Dysuria, No Urinary Frequency Musculoskeletal : No joint pain, No Myalgias, No Joint Swelling Skin : No Skin Lesions, No rash All other systems reviewed and are negative PMFSH Past Medical History Attestation statement: The following information was validated with the patient. Source: old records reviewed Medical History Bleeding hemorrhoids HTN (hypertension) Social History Social History Household Members: Family Alcohol intake: current Alcohol intake frequency: 3 or more drinks per day Patient Tobacco Use Status: Current everyday Tobacco user Smoked in Last 30 Days: Yes Advance Directives: No Advance Directives Information Provided: Yes Do you have a plan to hurt others: No Plan Current occupational status: employed Physical Exam 2 Vital Signs: Vital Signs: Last Vital Signs Temp 98.7 F 03/02/25 14:14 Pulse 87 03/02/25 14:14 Resp 20 03/02/25 14:14 BP 152/87 H 03/02/25 14:14 Pulse Ox 98 03/02/25 14:14 O2 Del Method Room Air 03/02/25 14:14 BMI result Body Mass Index 24.3 Appearance: Alert. Oriented X3. No acute distress. Eyes: Pupils equal, round and reactive to light. ENT: Pharynx normal. Neck: Normal inspection. Neck supple. CVS: Normal heart rate and rhythm. Pulses normal. Respiratory: No respiratory distress. Breath sounds normal. Abdomen: Soft and nontender. Skin: Skin warm and dry. Normal skin color. Normal skin turgor. Extremities: No lower extremity edema. Neuro: Oriented X 3. No motor deficit. No sensory deficit. CN2-12 intact Course Course Course Narrative: JEEVAN Parada 03/02/25 6180 This is a Rapid Medical Examination (RME) performed by Cora Cunningham PA-C in triage. Full HPI, ROS, assessment and treatment plan per primary provider in the Main ED. Hx: 64 yo M hx HTN here for eval of R sided chest pain which began at work today. 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 reports 3 episodes of this pain while at work, lasting 2 mins each. no radiation. no N/V. self discontinued his HTN meds 1 yr ago d/t insurance issues - reports taking an old prescription of lisinopril yesterday. Plan: labs, EKG Reevaluation(s) Reevaluation #1: JEEVAN Parada 03/02/25 1636 Received patient in sign out pending 3rd troponin. I have reviewed all work up results. 3rd troponin down trending, 7.7. discussed all work up results with patient. continues to be asymptomatic. patient is stable for discharge at this time. BP meds sent to pharmacy. Patient has remained stable throughout ED visit today. Discussed worrisome signs and symptoms and when to return to the ED. All questions answered at this time. Patient is agreeable with disposition and stable for discharge. Medical Decision Making Medical Decision Making [facility] Narrative: 64 yo male with PMH of HTN not on medications here with c/o atypical R sided chest pain - he has no risk factors VTE, his pain is atypical for ACS, distal pulses intact doubt dissection - at this time will obtain EKG, delta troponin and CXR given mass. At this time could be mass, HTN, cocaine induced issue though he has no active chest pain now so spasm unlikely. He is well appearing and playing on the phone. Was on 3 different BP medications when he had his PCP - will start HCTZ 12.5mg and amlodipine 5mg if work up is negative signed out to JEEVAN Cunningham at 4pm pending repeat troponin Differential Diagnosis Differential Diagnoses: The differential diagnosis associated with the presentation includes HTN, cocaine induced spasm, ACS, no risk factors for PE - no hypoxia, tachcyardia, signs of DVT distal pulses intact doubt dissection Admission/Observation Consideration of admission/observation: Escalation of care including admission/observation considered heart score 3 EKG unchanged flat trop x 3 can be managed as outpatient and told him to stop cocaine and will start on amlodipine Lab Data [facility] Lab Attestation statement: I reviewed the patient's lab results. 03/02/25 11:51 03/02/25 11:51 Labs: Lab Results 03/02/25 03/02/25 03/02/25 Range/Units 11:51 13:55 15:59 WBC 6.6 (4.8-10.8) X10*3/uL RBC 5.17 (4.60-5.80) X10*6/uL Hgb 15.7 (14.0-18.0) g/dl Hct 47.8 (42.0-52.0) % MCV 92.5 (80.0-98.0) fL MCH 30.4 (27.0-33.0) pg MCHC 32.8 (31.0-36.0) g/dl RDW 13.9 (11.0-16.0) % Plt Count 192 (160-400) X10*3/uL MPV 9.8 (9.4-12.4) fL Immature Gran % (Auto) 0.3 (0.0-0.4) % Neut % (Auto) 62.5 (45-73) % Lymph % (Auto) 24.4 (20-40) % [place] % (Auto) 10.1 (2-11) % Eos % (Auto) 1.8 (0-4) % Baso % (Auto) 0.9 (0-2) % Lymph # (Auto) 1.6 (1.2-4.9) X10*3/uL [place] # (Auto) 0.7 (0.1-1.2) X10*3/uL Eos # (Auto) 0.1 (0.0-0.4) X10*3/uL Baso # (Auto) 0.1 (0.0-0.2) X10*3/uL Abs Immat Gran (auto) 0.02 (0.00-0.03) X10*3/uL Absolute Neuts (auto) 4.1 (2.0-8.3) x10*3/uL Absolute Nucleated RBC 0.000 (0.0-0.012) X10*3/uL Nucleated RBC % (auto) 0.0 (0.0-0.2) /100WBC Sodium 138 (135-145) mmol/L Potassium 4.3 (3.3-5.1) mmol/L Chloride 105 (96-108) mmol/L Carbon Dioxide 26 (22-29) mmol/L Anion Gap 11 L (12-20) BUN 14 (9-16) mg/dL Creatinine 0.87 (0.5-1.4) mg/dL Estim Creat Clear Calc 73.7 Estimated GFR > 60 Random Glucose 127 H (60-115) mg/dL Calcium 9.0 (8.4-10.2) mg/dL Magnesium 2.3 (1.6-2.6) mg/dL Total Bilirubin 0.4 (0.0-1.0) mg/dL AST 25 (5-37) U/L ALT 19 (0-40) U/L Alkaline Phosphatase 81 (39-117) U/L Troponin I High Sens 5.1 8.3 D 7.7 (<3.5-35.0) ng/L Total Protein 6.7 (6.5-8.0) g/dL Albumin 4.2 (3.5-5.0) g/dL Lipase 47 (8-78) U/L Independent Interpretation I performed an independent interpretation of an: EKG and Plain X-Ray (normal ) Interpretation: Rate: 75 Rhythm: NSR Miller: normal Normal P waves. Normal SANDIE. Normal QRS complex. ST T wave : inverted t waves V1, no ASHLIE qTC:433 prior studies: no acute ischemia The study has been interpreted contemporaneously by me. . Radiology Impression Discussion of test interpretation with radiology: I have reviewed the radiologist's reading. External Record Review External record reviewed: Outpatient record Prescription Management I considered prescription management with: Other Chronic Conditions Patient?s care impacted by: Hypertension Discharge Plan Discharge Clinical Impression: Atypical chest pain Patient Disposition: Home, Self-Care Instructions: Chest Pain (ED) Additional Instructions: follow up with a primary care provider take your medications return for any worsening symptoms or concerns you cannot use cocaine take medications as prescribed. Prescriptions: New amlodipine 5 mg tablet 5 mg PO DAILY Qty: 60 2RF hydrochlorothiazide 12.5 mg tablet 12.5 mg PO DAILY Qty: 60 2RF No Action acetaminophen [Tylenol Extra Strength] 500 mg tablet 500 mg PO Q6H PRN (Reason: pain or fever) Qty: 20 0RF lidocaine [Lidoderm] 5 % adhesive patch,medicated 1 patch topical DAILY MDD remove after 12 hours PRN (Reason: pain) Qty: 30 0RF Rx Instructions: leave on most painful area for up to 12 hrs naproxen 500 mg tablet 500 mg PO BID PRN (Reason: pain) 10 Days Qty: 20 0RF cyclobenzaprine 5 mg tablet 5 mg PO Q8H PRN (Reason: pain (scale score 7-10)) 5 Days Qty: 14 0RF cyclobenzaprine 10 mg tablet 10 mg PO TID PRN (Reason: muscle spasm) Qty: 14 0RF lidocaine 4 % adhesive patch,medicated 1 patch topical DAILY PRN (Reason: pain) Qty: 10 0RF Rx Instructions: may leave on for up to 12 hrs prednisone 20 mg tablet 40 mg PO DAILY Qty: 8 0RF cyclobenzaprine 5 mg tablet 5 mg PO TID PRN (Reason: muscle spasm) Qty: 10 0RF lidocaine 4 % adhesive patch,medicated 1 patch topical DAILY PRN (Reason: pain) Qty: 15 0RF doxycycline hyclate 100 mg capsule 100 mg PO BID 7 Days Qty: 14 0RF acetaminophen 500 mg tablet 1,000 mg PO QID PRN (Reason: pain) Qty: 30 0RF amlodipine 5 mg tablet 5 mg PO DAILY irbesartan 150 mg tablet 150 mg PO DAILY hydrocortisone acetate [Anucort-HC] 25 mg suppository 25 mg MI DAILY Qty: 24 2RF hydrocortisone [Proctozone-HC] 2.5 % cream with perineal applicator 1 appl MI BID PRN (Reason: hemorrhoids) Qty: 30 3RF Rx Instructions: apply MI BID prn bisacodyl [Dulcolax (bisacodyl)] 5 mg tablet,delayed release (DR/EC) 20 mg PO ONCE 1 Days Qty: 4 0RF Rx Instructions: Take 4 tablets by mouth at 12:00pm the day before your procedure. polyethylene glycol 3350 [Miralax] 17 gram/dose powder 238 g PO ONCE PRN (Reason: laxative effect) 1 Days Qty: 238 0RF Rx Instructions: Take as directed by mouth the day before your procedure. Referrals: [facility] Family Medicine [Provider Group, Family Practice] Physician,Unknown J [Primary Care Provider, Medical] Stand Alone Forms: Work/School Release Print Language: Martiniquais
[2025-03-02 11:41] VITALS: BP 148/92; PULSE 86; RESP 17; TEMP 36.4; O2SAT 96; BMI 24.3
[2025-03-02 11:54] LABS: MANUAL DIFF FLAG NO
[2025-03-02 11:56] LABS: Hematocrit 47.8 % (42.0-52.0); Hemoglobin 15.7 g/dl (14.0-18.0); Imm Gran Abs Auto 0.02 X10*3/uL (0.00-0.03); Imm Gran Pct Auto 0.3 % (0.0-0.4); Lymphocytes Absolute Auto 1.6 X10*3/uL (1.2-4.9); Mean Corpuscular HGB Conc 32.8 g/dl (31.0-36.0); Mean Corpuscular Hemoglobin 30.4 pg (27.0-33.0); Mean Corpuscular Volume 92.5 fL (80.0-98.0); NRBC Abs Auto 0.000 X10*3/uL (0.0-0.012); NRBC Pct Auto 0.0 /100WBC (0.0-0.2); Platelet Count 192 X10*3/uL (160-400); Red Blood Count 5.17 X10*6/uL (4.60-5.80); White Blood Count 6.6 X10*3/uL (4.8-10.8)
[2025-03-02 12:13] LABS: Alanine Aminotransferase 19 U/L (0-40); Albumin Level 4.2 g/dL (3.5-5.0); Alkaline Phosphatase 81 U/L (39-117); Anion Gap 11 (12-20); Aspartate Amino Transferase 25 U/L (5-37); Blood Urea Nitrogen 14 mg/dL (9-16); Calcium 9.0 mg/dL (8.4-10.2); Carbon Dioxide 26 mmol/L (22-29); Chloride 105 mmol/L (96-108); Creatinine Clr Calc Pharmacy 73.7; Estimated Glomerular Filt Rate > 60; Lipase 47 U/L (8-78); Magnesium 2.3 mg/dL (1.6-2.6); Potassium 4.3 mmol/L (3.3-5.1); Sodium 138 mmol/L (135-145); Total Protein 6.7 g/dL (6.5-8.0)
[2025-03-02 12:20] LABS: Troponin-I High Sensitivity 5.1 ng/L (<3.5-35.0)
--- OUTSIDE RECORDS SUMMARY | 2025-03-02 12:55 | XMS_ITS | Encounter Summary ---
Author Organization [facility] Address [address] [place] [id number] Phone Care Team Providers Care Sales Administration Manager Name Role Phone Claire Hidalgo TOOL REPAIR TECHNICIAN Primary Care Provider [phone] Deacon Coy MD Unavailable Unknown, Unknown Primary Care Provider Fabrizio glez Encounter Details Date Type Department Care Team (Late st Contact Info) Description 12/20/2020 Procedure Pass [facility], Ct Scan - [address] [address] Social History Tobacco Use Types Packs/Day Years Used Date Smoking Tobacco: Some Days Cigarettes 0.3 30 Smokeless Tobacco: Never Alcohol Use Standard Drinks/Week Comments Yes 5 (1 standard drink = 0.6 oz pur e alcohol) 5-6 drinks weekly Sex and Gender Information Value Date Recorded Sex Assigned at Not on file Legal Sex Male 9:45 PM EDT Gender Identity Not on file Sexual Orientation Not on file documented as of this encounter Plan of Treatment Not on file documented as of this encounter Visit Diagnoses Not on filedocumented in this encounter Additional Health Concerns Assessment Noted Time PHQ-2 Depression Total Score: 0 12/21/19 21 3:12 PM EDT documented as of this encounter Care Teams Sales Administration Manager Relationship Specialty Start Date End Date Claire Hidalgo NP [email or web address] PCP - General Family Medicine 02/16/18 10/29/23 Unknown, Unknown, MD PCP - General 10/30/23 Deacon Coy MD [address] [place] [address] [email or web address] Insurance Assigned Provider 06/08/21 documented as of this encounter Additional Source Comments The information contained in this document represents components of the legal health record. It is not the complete legal health record.[facility]
[2025-03-02 14:14] VITALS: BP 152/87; PULSE 87; RESP 20; TEMP 37.1; O2SAT 98
[2025-03-02 14:23] LABS: Troponin-I High Sensitivity 8.3 ng/L (<3.5-35.0)
[2025-03-02 16:28] LABS: Troponin-I High Sensitivity 7.7 ng/L (<3.5-35.0)
[2025-03-02 16:49] VITALS: BP 160/97; PULSE 84; RESP 18; TEMP 36.6; O2SAT 96
[2025-03-02 17:05] VITALS: BP 160/97; PULSE 84; RESP 18; TEMP 36.6; O2SAT 96
== END 2025-03-02 17:06 | disposition home or self-care (01) ==
PROVIDERS: Emergency Provider Emergency Medicine; Referring Provider Physician Assistant Medical
DX: R07.89 Other chest pain (principal); R06.02 Shortness of breath; R11.0 Nausea; Z79.899 Other long term (current) drug therapy
CPT/HCPCS: 36415; 71045; 80053; 83690; 83735; 84484; 85025; 93005; 99283; 99284

== ENCOUNTER → 2025-03-02 11:34 | Outpatient (BNV) | payer SELFPAY | PROVIDERS: Emergency Provider Emergency Medicine; Visit Provider Internal Medicine Cardiovascular Disease | DX: I45.10 Unspecified right bundle-branch block (principal) | CPT/HCPCS: 93010 ==

== ENCOUNTER → 2025-03-02 13:43 | Outpatient (BNV) | payer SELFPAY | PROVIDERS: Emergency Provider Emergency Medicine; Visit Provider Radiology Body Imaging | DX: R07.9 Chest pain, unspecified (principal) | CPT/HCPCS: 71045 ==

== ENCOUNTER 2025-05-30 09:03 | Inpatient (IN) | payer OTHER, SELFPAY ==
[2025-05-30] VITALS (8 sets, daily range): BP systolic 160–200; BP diastolic 90–120; PULSE 79–98; RESP 16–20; TEMP 36.6–36.9; O2SAT 93–98; BMI 26.3; BMI 26.1
--- NOTE | ~2025-05-30 | CT_ITS ---
EXAMINATION: CT ABDOMEN AND PELVIS WITHOUT AND WITH CONTRAST CLINICAL INFORMATION: Rectal bleeding COMPARISON: None available. TECHNIQUE: Multidetector volumetric imaging was performed of the abdomen and pelvis before and after the IV administration of mL of Omnipaque 300 intravenous contrast. Sagittal and coronal reformatted images were obtained on the technologist's workstation. This CT examination was performed using dose optimization techniques as appropriate, variously including the following: *Automated exposure control *Adjustment of mA and/or kV according to patient size (this includes techniques or standardized protocols for targeted exams where dose is matched to indication/reason for exam; i.e. extremities or head) *Use of iterative reconstruction technique FINDINGS: LUNG BASES: The visualized lung bases are unremarkable. LIVER, GALLBLADDER, AND BILIARY TREE: The liver is normal in size, shape, and attenuation. No focal hepatic lesion or biliary ductal dilatation is present. The gallbladder is unremarkable with no evidence of radiopaque gallstones, gallbladder wall thickening, or obvious pericholecystic inflammatory changes. PANCREAS: Unremarkable SPLEEN: Unremarkable ADRENAL GLANDS: The left adrenal gland is bulky in size and measures -8 Hounsfield units consistent with a benign lipid rich adrenal adenoma. The right adrenal gland also measures -5 Hounsfield units and is less bulky than on the left, also likely with involvement of a lipid rich adrenal adenoma KIDNEYS AND URETERS: No stones, hydronephrosis, or other abnormalities are noted. BLADDER: Unremarkable GASTROINTESTINAL TRACT: Mildly increased vascularity is noted in the left lower quadrant in the region of the sigmoid colon . There are no areas of active extravasation or increasing attenuation of bowel content. ABDOMINAL WALL: No significant hernia is appreciated. LYMPH NODES: Normal VASCULAR: Moderate vascular calcifications are present.. The distal left common iliac artery focally narrows to minimum diameter of 3.1 mm. Lumen measures 9.6 mm more distally consistent with approximately 68 % stenosis. PELVIC VISCERA: Unremarkable OSSEOUS STRUCTURES: Mild multilevel degenerative changes are present in the lower thoracic and lumbar spine. CT/CT gi bleed abd pel wo/w IVcon IMPRESSION: There is mildly increased vascularity in the region of the sigmoid colon but no active intra-abdominal bleeding was demonstrated. 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 Bilateral lipid rich adrenal gland adenomas, left greater than right. Fleischner guidelines were followed. Electronically signed by: Oscar Mckeon MD 05/30/2025 11:15 AM EDT
--- NOTE | 2025-05-30 09:15 | ED_ITS ---
HPI - General Adult General Chief complaint: General Medical Stated complaint: blood in stool Time Seen by Provider: 05/30/25 09:14 Source: patient and RN notes reviewed Mode of arrival: ambulatory Limitations: no limitations History of Present Illness ED Provider: Cherise Medina PA-C HPI narrative: This is a 65-year-old male, with a past medical history of hypertension and bleeding hemorrhoids, who presents emergency department with concerns of rectal bleeding. Patient reports that he had a bowel movement yesterday, and when wiping he noticed bright red blood. He states that this resolved. He states that while he was at work today standing, he felt a gush of wetness in his underwear. He went to the bathroom realize that he had bright red blood in his underwear. He denies having a bowel movement today. He states that he is otherwise feeling well. No fevers, chills, dizziness, chest pain, shortness of breath, blurred vision, double vision, abdominal pain, nausea, vomiting or diarrhea. He has been in his usual state of health. He is not anticoagulated. He has a history of bleeding hemorrhoids. No other complaints or concerns at this time. MD complaint: Rectal bleeding Onset (ago): day(s) Radiation: non-radiation Severity: moderate Quality: aching Pain Consistency: constant Relieving factors: none Exacerbating factors: none Associated symptoms: denies other symptoms Treatments prior to arrival: none Related Data Home Medications ?Medication ?Instructions ?Recorded ?Confirmed irbesartan 150 mg tablet 150 mg PO DAILY 05/25/23 Previous Rx's ?Medication ?Instructions ?Recorded amlodipine 5 mg tablet 5 mg PO DAILY #60 tabs 03/02 hydrochlorothiazide 12.5 mg tablet 12.5 mg PO DAILY #6 0 tabs 03/02/25 Allergies Allergy/AdvReac Type Severity Reaction Status Date / Time cephalexin (From KEFLEX) Allergy Unknown RASH Verified 05/30/25 09:10 naproxen (NAPROXEN) Allergy Unknown RASH Verified 05/30/25 09:10 sulfamethoxazole (From Allergy Unknown RASH Verified 05/30/25 09:10 BACTRIM) trimethoprim (From BACTRIM) Allergy Unknown RASH Verified 05/30/25 09:10 Review of Systems 2 Review of Systems: Constitutional : No Fever, No Chills ENT/Mouth : No sore throat, No Rhinorrhea Eyes: No Eye Pain, No Swelling, No Redness Cardiovascular : No Chest Pain, No SOB Respiratory : No Cough, No Sputum Gastrointestinal : No Nausea, No Vomiting, No Diarrhea, No abdominal Pain Genitourinary : No Dysuria, No Hematuria Musculoskeletal : No joint pain, No Myalgias, No Joint Swelling Skin : No Skin Lesions Neuro : No Weakness, No Numbness, No Headache All other systems reviewed and are negative Yes all other systems are reviewed and are negative Constitutional: Constitutional: Reports as per [facility] Past Medical History Medical History Bleeding hemorrhoids HTN (hypertension) Social History Social History Household Members: Family Alcohol intake: current Alcohol intake frequency: 3 or more drinks per day Patient Tobacco Use Status: Current everyday Tobacco user Advance Directives: No Advance Directives Information Provided: Yes Current occupational status: employed Physical Exam ED Vital Signs: Vital Signs - 24 hr 05/30/25 09:05 05/30/25 10:00 05/30/25 12:00 Temperature 98 F Pulse Rate 98 84 82 Respiratory Rate 18 20 18 Blood Pressure 200/120 H 169/108 H 175/112 H Pulse Oximetry 96 95 97 Oxygen Delivery Method Room Air Room Air Room Air BMI result Body Mass Index 26.3 Const General: cooperative, comfortable and no acute distress Orientation/consciousness: patient oriented x3 Limitations: no limitations HENMT Head: Yes normal to inspection, Yes normocephalic and Yes atraumatic Ears: hearing grossly normal bilaterally General nose exam: Normal external nose present Face and sinus: Yes normal facial exam Mouth: Normal oral and palatal mucosa present, oropharynx normal and moist mucous membranes Throat: Yes posterior oropharynx normal Eyes General: appearance normal, both eyes and all related structures Eyelids: Yes eyelids normal Conjunctivae: conjunctivae normal Sclerae: sclerae normal Pupils: Equal, round and reactive pupils present EOM: EOMs intact bilaterally Neck Neck: Yes normal visual inspection, Yes full ROM and Yes no lymphadenopathy Lymphatic: no lymphadenopathy noted Chest Chest palpation & inspection: normal inspection of the chest Resp Effort & Inspection: normal respiratory effort and able to speak in complete sentences Auscultation: clear to auscultation bilaterally, no crackles, no rales, no rhonchi and no wheezes Cardio Rate: regular rate Rhythm: regular rhythm Heart sounds: S1 normal heart sound present and S2 normal heart sound present GI Other: Abdomen is soft, nontender, nondistended Rectal examination performed with ABEL Raphael present. No external hemorrhoid noted, no internal hemorrhoid noted, brown stool noted, no active hemorrhage. Inspection: Yes normal to inspection Skin General skin exam: no rashes or lesions noted Trauma: no lacerations or abrasions Wounds: no wounds Neuro General: patient oriented x3 and moves all extremities Cranial nerves: Yes Equal, round and reactive pupils present Extrem General: Yes normal to inspection Right upper extremity: normal to inspection Left upper extremity: normal to inspection Right lower extremity: normal to inspection Left lower extremity: normal to inspection Medications Administered Generic Name Dose Route Start Last Admin Trade Name Freq PRN Reason Stop Dose Admin Amlodipine Besylate 5 mg 05/30/25 14:50 05/30/25 15:14 Amlodipine Besylate 5 Mg Tablet PO 5 mg DAILY FREDY Administration Protocol Sodium Chloride 3 ml 05/30/25 16:00 05/30/25 17:04 0.9 % Sodium Chloride Flush 3 Ml Syringe IVFLUSH Not Given QSHIFT FREDY Discontinued Medications Generic Name Dose Route Start Last Admin Trade Name Freq PRN Reason Stop Dose Admin Bisacodyl 10 mg 05/30/25 14:12 05/30/25 14:42 Bisacodyl 5 Mg Tablet.Dr PO 05/30/25 14:13 10 mg ONCE ONE Administration Iohexol 100 ml 05/30/25 10:42 05/30/25 10:43 Iohexol 350 Mg/Ml 100 Ml Infus..Btl IV 05/30/25 10:43 85 ml ONCE ONE Administration Medical Decision Making Medical Decision Making [facility] Narrative: This is a 65-year-old male who presents emergency department for evaluation of rectal bleeding. He noticed bleeding that self resolved last night after having a bowel movement. While he was at work today he had a gush of blood in his underwear, stating bright red blood per rectum. He has a history of bleeding hemorrhoids. He denies any current external hemorrhoids. He is otherwise feeling well. He does have a history of hypertension, he has not been taking his blood pressure medication as he does not have a primary care physician at this time. Abdomen is soft, nontender, nondistended. Will obtain labs to ensure that he is not anemic secondary to bright red blood per rectum, we will also obtain other blood work to rule out any electrolyte derangement. 11:29 AM 05/30/2025 (Cherise Medina PA-C): Labs returned, he has slight leukocytosis at 11.8, likely reactive, infection is not suspected. H&H stable. Patient requiring blood transfusion at this time. He is hemodynamically stable. Chemistry revealing no significant electrolyte derangement. CT obtained revealing mild increased vascularity in the region of the sigmoid colon but no active intra-abdominal bleeding demonstrated. There is hemodynamically significant stenosis involving the distal left common iliac artery measuring 60%. There is also bilateral lipid rich adrenal gland adenomas left greater than right. Given this finding, I reached out to Dr. Smith, vascular surgeon. He is recommending that he will be happy to see him outpatient, recommending aspirin and statin. We are deferring aspirin treatment at this time as patient is presenting with rectal bleeding. 12:49 PM 05/30/2025 (Cherise Medina PA-C): Given rectal bleeding, I discussed case with Dr. Castellano, housekeeping cleaner, recommending to different options, inpatient colonoscopy especially if he has comorbidities or is on blood thinners. Early outpatient if he is otherwise healthy. I discussed case with my attending physician, Dr. Schulte reviewed the images and overall clinical picture today, given that he saturated his underwear, and has poor overall treatment of his high blood pressure and high cholesterol, patient should be admitted for further management and treatment. Dr. Castellano saw patient at bedside, recommending clear liquid diet now, bowel prep tonight, and will have a colonoscopy in the morning. Will discussed case with hospitalist for transfer of care. Differential Diagnosis Differential Diagnoses: The differential diagnosis associated with the presentation includes GI bleed, external hemorrhoids, GI hemorrhage, internal hemorrhoids, anemia Admission/Observation Consideration of admission/observation: Escalation of care including admission/observation considered Consult Healthcare Provider Management of the patient was discussed with: Cellular Equipment Installer Dr. Castellano, GI Dr. Smith, Vascular Lab Data [facility] Lab Attestation statement: I reviewed the patient's lab results. See MDM 05/30/25 14:38 05/30/25 09:45 Labs: Lab Results 05/30/25 Range/Units 09:45 WBC 11.8 H (4.8-10.8) X10*3/uL RBC 5.40 (4.60-5.80) X10*6/uL Hgb 16.2 (14.0-18.0) g/dl Hct 49.4 (42.0-52.0) % MCV 91.5 (80.0-98.0) fL MCH 30.0 (27.0-33.0) pg MCHC 32.8 (31.0-36.0) g/dl RDW 13.4 (11.0-16.0) % Plt Count 182 (160-400) X10*3/uL MPV 10.5 (9.4-12.4) fL Immature Gran % (Auto) 0.3 (0.0-0.4) % Neut % (Auto) 74.8 H (45-73) % Lymph % (Auto) 14.3 L (20-40) % [place] % (Auto) 8.7 (2-11) % Eos % (Auto) 1.3 (0-4) % Baso % (Auto) 0.6 (0-2) % Lymph # (Auto) 1.7 (1.2-4.9) X10*3/uL [place] # (Auto) 1.0 (0.1-1.2) X10*3/uL Eos # (Auto) 0.2 (0.0-0.4) X10*3/uL Baso # (Auto) 0.1 (0.0-0.2) X10*3/uL Abs Immat Gran (auto) 0.03 (0.00-0.03) X10*3/uL Absolute Neuts (auto) 8.8 H (2.0-8.3) x10*3/uL Absolute Nucleated RBC 0.000 (0.0-0.012) X10*3/uL Nucleated RBC % (auto) 0.0 (0.0-0.2) /100WBC Sodium 140 (135-145) mmol/L Potassium 3.9 (3.3-5.1) mmol/L Chloride 106 (96-108) mmol/L Carbon Dioxide 26 (22-29) mmol/L Anion Gap 12 (12-20) BUN 14 (9-16) mg/dL Creatinine 0.82 (0.5-1.4) mg/dL Estim Creat Clear Calc 80.2 Estimated GFR > 60 Random Glucose 90 (60-115) mg/dL Calcium 9.1 (8.4-10.2) mg/dL Magnesium 2.0 (1.6-2.6) mg/dL Total Bilirubin 0.4 (0.0-1.0) mg/dL Direct Bilirubin 0.1 (0.0-0.5) mg/dL AST 27 (5-37) U/L ALT 32 (0-40) U/L Alkaline Phosphatase 89 (39-117) U/L Total Protein 7.2 (6.5-8.0) g/dL Albumin 4.3 (3.5-5.0) g/dL Lipase 26 (8-78) U/L Blood Type O Positive Antibody Screen NEGATIVE Radiology Impression Discussion of test interpretation with radiology: I have reviewed the radiologist's reading. Radiologist Impression: Attending Dr: Ordering Physician: Cherise Medina Date of Service: 05/30/25 Procedure(s): CT gi bleed abd pel wo/w IVcon Accession Number(s): [id number] cc: Physician,None ; Cherise Medina~ Report Number: [id number]: Total DLP = 997.00 mGy-cm Reason for Exam: rectal bleeding EXAMINATION: CT ABDOMEN AND PELVIS WITHOUT AND WITH CONTRAST CLINICAL INFORMATION: Rectal bleeding COMPARISON: None available. TECHNIQUE: Multidetector volumetric imaging was performed of the abdomen and pelvis before and after the IV administration of mL of Omnipaque 300 intravenous contrast. Sagittal and coronal reformatted images were obtained on the technologist's workstation. This CT examination was performed using dose optimization techniques as appropriate, variously including the following: *Automated exposure control *Adjustment of mA and/or kV according to patient size (this includes techniques or standardized protocols for targeted exams where dose is matched to indication/reason for exam; i.e. extremities or head) *Use of iterative reconstruction technique FINDINGS: LUNG BASES: The visualized lung bases are unremarkable. LIVER, GALLBLADDER, AND BILIARY TREE: The liver is normal in size, shape, and attenuation. No focal hepatic lesion or biliary ductal dilatation is present. The gallbladder is unremarkable with no evidence of radiopaque gallstones, gallbladder wall thickening, or obvious pericholecystic inflammatory changes. PANCREAS: Unremarkable SPLEEN: Unremarkable ADRENAL GLANDS: The left adrenal gland is bulky in size and measures -8 Hounsfield units consistent with a benign lipid rich adrenal adenoma. The right adrenal gland also measures -5 Hounsfield units and is less bulky than on the left, also likely with involvement of a lipid rich adrenal adenoma KIDNEYS AND URETERS: No stones, hydronephrosis, or other abnormalities are noted. BLADDER: Unremarkable GASTROINTESTINAL TRACT: Mildly increased vascularity is noted in the left lower quadrant in the region of the sigmoid colon . There are no areas of active extravasation or increasing attenuation of bowel content. ABDOMINAL WALL: No significant hernia is appreciated. LYMPH NODES: Normal VASCULAR: Moderate vascular calcifications are present.. The distal left common iliac artery focally narrows to minimum diameter of 3.1 mm. Lumen measures 9.6 mm more distally consistent with approximately 68 % stenosis. PELVIC VISCERA: Unremarkable OSSEOUS STRUCTURES: Mild multilevel degenerative changes are present in the lower thoracic and lumbar spine. CT/CT gi bleed abd pel wo/w IVcon IMPRESSION: There is mildly increased vascularity in the region of the sigmoid colon but no active intra-abdominal bleeding was demonstrated. 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 Bilateral lipid rich adrenal gland adenomas, left greater than right. Fleischner guidelines were followed. Electronically signed by: Oscar Mckeon MD 05/30/2025 11:15 AM EDT Dictated By: Oscar Mckeon MD Critical Care Time Critical Care Time Critical Care Time: Yes Total Critical Care Time: 40 Attestation: I have personally provided critical care time exclusive of time spent on separately billable procedures. Time includes review of lab data, radiology results, discussion with consultants, and monitoring for potential decompensation. Intervention performed as documented. Discharge Plan Discharge Clinical Impression: Rectal bleeding Patient Disposition: Admitted As Inpatient
[2025-05-30 09:52] LABS: MANUAL DIFF FLAG NO
[2025-05-30 09:58] LABS: Hematocrit 49.4 % (42.0-52.0); Hemoglobin 16.2 g/dl (14.0-18.0); Imm Gran Abs Auto 0.03 X10*3/uL (0.00-0.03); Imm Gran Pct Auto 0.3 % (0.0-0.4); Lymphocytes Absolute Auto 1.7 X10*3/uL (1.2-4.9); Mean Corpuscular HGB Conc 32.8 g/dl (31.0-36.0); Mean Corpuscular Hemoglobin 30.0 pg (27.0-33.0); Mean Corpuscular Volume 91.5 fL (80.0-98.0); NRBC Abs Auto 0.000 X10*3/uL (0.0-0.012); NRBC Pct Auto 0.0 /100WBC (0.0-0.2); Platelet Count 182 X10*3/uL (160-400); Red Blood Count 5.40 X10*6/uL (4.60-5.80); White Blood Count 11.8 X10*3/uL (4.8-10.8)
[2025-05-30 10:08] LABS: Alanine Aminotransferase 32 U/L (0-40); Albumin Level 4.3 g/dL (3.5-5.0); Alkaline Phosphatase 89 U/L (39-117); Anion Gap 12 (12-20); Aspartate Amino Transferase 27 U/L (5-37); Blood Urea Nitrogen 14 mg/dL (9-16); Calcium 9.1 mg/dL (8.4-10.2); Carbon Dioxide 26 mmol/L (22-29); Chloride 106 mmol/L (96-108); Creatinine Clr Calc Pharmacy 80.2; Estimated Glomerular Filt Rate > 60; Lipase 26 U/L (8-78); Magnesium 2.0 mg/dL (1.6-2.6); Potassium 3.9 mmol/L (3.3-5.1); Sodium 140 mmol/L (135-145); Total Protein 7.2 g/dL (6.5-8.0)
--- OUTSIDE RECORDS SUMMARY | 2025-05-30 10:30 | XMS_ITS | Encounter Summary ---
Author Organization [facility] Address [address] [place] [id number] Phone Care Team Providers Care Dry Talc Racker Name Role Phone Claire Hidalgo MANAGER SCHEDULING Primary Care Provider [phone] Deacon Coy MD Unavailable Unknown, Unknown Primary Care Provider Fabrizio glez Encounter Details Date Type Department Care Team (Late st Contact Info) Description 12/20/2020 Procedure [facility], Ct Scan - [address] [id number] Social History Tobacco Use Types Packs/Day Years [...] documented as of this encounter Care Teams Dry Talc Racker Relationship Specialty Start Date End Date Claire Hidalgo NP [email or web address] PCP - General Family Medicine 02/16/18 10/29/23 Unknown, Unknown, MD PCP - General 10/30/23 Deacon Coy MD [address] [place] [address] [email or web address] Insurance Assigned Provider 06/08/21 documented as of this encounter Additional Source Comments The information contained in this document represents components of the legal health record. It is not the complete legal health record.[facility]
--- OUTSIDE RECORDS SUMMARY | 2025-05-30 10:31 | XMS_ITS | Clinical Summary ---
Author Organization [facility] Address [address] [place] [phone] Phone Care Team Providers Care Vehicle Care Specialist Name Role Phone Unknown, Unknown Primary Care Provider Fabirzio labshani Allergies Active Allergy Reactions Criticality Noted Date Comments Sulfamethoxazole-Trimethoprim Rash,Asthenia High 10/2019 Medications cholecalciferol (VITAMIN D3) 2,000 unit capsule Take 2,000 Units by mouth daily. Active Medication-Free TextIndications:B eet supplement Indications: Beet supplement Active amLODIPine (NORVASC) 5 MG tablet TAKE 1 TABLET (5 MG TOTAL) BY MOUTH DAILY. 90 tablet 3 3 Active irbesartan (AVAPRO) 150 MG tabletIndications :Essential hypertension TAKE 1 TABLET BY MOUTH EVERY DAY 90 tablet 3 3 Active Active Problems Problem Noted Date Diagnosed Date Moderate gambling disorder 03/06/2023 Alcohol use 03/06/2023 Coronary artery calcification seen on CT scan Acute low back pain with sciatica 01/30/2021 Assessment & Plan (01/30/2021 10:39 AM EDT): IT band syndrome versus functional sciatica. I would postulate that 2 weeks ago this patient woke up and had a poor sleep posture leading to his current syndrome. Its been intermittent and I am thinking that back spasms are to pulling his spine out of alignment causing the sciatica-like symptoms. This will lessen over time and then the symptoms go away. Certainly I doubt that a disc is out of place since he would have much more pronounced symptoms and continual. For pain relief we will add on some tramadol and only for extreme pain to keep him out of the ER, otherwise as needed liquid Advil 600 to 800 mg every 8 hours as needed. Take with food. I see that he has some Flexeril for muscle spasms we can also have him use that as well. We will obtain an x-ray of the back to document whether there is any shifts of the vertebral bodies out of alignment. If that were the case consider [facility] Urge incontinence of urine 05/18/2019 Nondependent cocaine abuse, episodic 02/10/2018 Essential hypertension 02/10/2018 Assessment & Plan (04/02/2021 12:58 PM EDT): Well-controlled at this time goal should be less than 130 mmHg Assessment & Plan (01/30/2021 10:36 AM EDT): Today blood pressure appears to be adequately controlled but it was not the case the last time possibly because of pain. Patient's pain is less. Continue HCTZ and Avapro. Family history of cardiovascular disease 018 Mixed hyperlipidemia 02/10/2018 Assessment & Plan (04/02/2021 12:58 PM EDT): As mentioned we are starting him on Crestor LDL has to come down about 60 points we will recheck it in 3 months time I told him to take his cholesterol medication at night Nicotine dependence, cigarettes, uncomplicated 0 02/10/2018 Immunizations Immunization Administration Dates Next Due COVID-19 (Pre-05/25) Moderna Vaccine, mRNA, PF 0 12/12/2020,11/14/2020 INFLUENZA, SPLIT VIRUS, TRIVALENT W/ PRESERVATIV E IM 05/26/2014,03/21/2010 Influenza Quadrivalent MDCK Preservative Free IM 06/16/2022 Influenza Quadrivalent Preservative Free IM 07/03,05/18/2019 Tdap 07/03/2014 Family History Medical History Relation Comments Heart disease Brother 1 No Known Problems Brother 2 No Known Problems Brother 3 No Known Problems Brother 4 No Known Problems Brother 5 No Known Problems Daughter 1 No Known Problems Daughter 2 CV disease Father heart attack 62 Hypertension Father Diabetes mellitus Mother CV disease Sibling Relation Status Comments Brother 1 Alive Brother 2 Alive Brother 3 Alive Brother 4 Alive Brother 5 Alive Daughter 1 Alive Daughter 2 Alive Father Mother Sibling Social History Tobacco Use Types Packs/Day Years Used Date Smoking Tobacco: Some Days Cigarettes 0.3 30 Smokeless Tobacco: Never Comments:Almost daily, 3-4 c igarettes Alcohol Use Standard Drinks/Week Comments Yes 12 (1 standard drink = 0.6 oz pure alcohol) 3-4 drinks, 4 or more times x week Child or Family Care Answer Date Record ed Do you have problems with on e of the following making it difficult for you to work, study, or receive health care? No 03/06/2023 Education Answer Date Recorded Are you interested in more education? Not on felipe e 03/15/2025 Are you concerned about learning? Not on file 03/15/2025 No 03/15/2025 No 03/15/2025 Food Answer Date Recorded Within the past 6 months we worried whether our food would run out before we got money to buy more. Never True 03/06/2023 Within the past 6 months the food we bought just didn't last and we didn't have enough money to get more. Never True Residential Stability Answer Date Recor ded What is your housing situation today? I have polina sing 03/06/2023 How many times have you move d in the past 12 months? Zero (I did not move) 03/06/2023 Paying for Meds Answer Date Recorded Do you have trouble paying for medicines? No 03/06/2023 Paying Utility Bills Answer Date Record ed Do you have trouble paying your heating or elect ricity bill? No 03/06/2023 Transportation Answer Date Recorded Has the lack of transportati on kept you from medical appointments or from getting medications? No 03/06/2023 Unemployment Answer Date Recorded Are you currently unemployed or working on a part-time or temporary basis, and looking for work? No 08/10/2021 Digital Access Answer Date Recorded No 03/15/2025 No 03/15/2025 Reliable internet access at home? Not on file 03/15/2025 Device with a working camera? Not on file SNAP & WIC Answer Date Recorded Do you receive benefits from SNAP (the Supplemental Nutrition Assistance Program) or the Food Stamp Program? No 03/06/2023 SNAP is a free program that can help you and your family get access to healthy foods, nutrition classes, utility discounts, and more. Would you be interested in learning more? No 03/06/2023 Can we help you enroll in SNAP? Not on file 03/06/2023 Benefits received from WIC? Not on file 11/2022 WIC is a free program, interested in learning mo re? Not on file 03/06/2023 Can we help you enroll in WIC? Not on file 0 03/06/2023 Intimate Partner Violence Answer Date R ecorded Denied Basic Needs Not on file 03/06/2023 In the past 12 months have y ou been in a relationship with a person who hurts, threatens, or tries to control you? No 03/06/2023 Worried food would run out Not on file 03/06 In the past 12 months have y ou been in a relationship with a person who hurts, threatens, or tries to control you? No 03/06/2023 Sex and Gender Information Value Date Recorded Sex Assigned at Not on file Legal Sex Male 9:45 PM EDT Gender Identity Not on file Sexual Orientation Not on file Last Filed Vital Signs Vital Sign Reading Time Taken Comments Blood Pressure 138/72 03/06/2023 3:09 PM EDT Pulse 97 03/06/2023 3:09 PM EDT Temperature 36.9 C (98.4 F) 09/05/2022 1:49 PM EST Respiratory Rate 16 03/06/2023 3:09 PM EDT Oxygen Saturation 97% 03/06/2023 3:09 PM EDT Inhaled Oxygen Concentration - - Weight 72 kg (158 lb 12.8 oz) 03/06/2023 3:09 PM EDT Height 168.3 cm (5' 6.25 ) 03/06/2023 3:09 PM ED T Body Mass Index 25.44 03/06/2023 3:09 PM EDT Plan of Treatment Health Maintenance Due Date Last Done Comments SMOKING Hx and SMOKELESS TOBACCO SCREENING 1975 PNEUMOCOCCAL VACCINES (50+ years) (1 of 2 - PCV) 1981 COLOGUARD 2007 FIT TEST 2007 FOBT 2007 SIGMOIDOSCOPY 2007 VIRTUAL COLONOSCOPY 2007 ZOSTER VACCINES (1 of 2) 2012 COLONOSCOPY 07/21/2022 07/21/2019 COLORECTAL CANCER SCREENING 07/21/2022 BLOOD PRESSURE 09/06/2023 03/06/2023 LIPID PANEL 09/08/2023 09/08/2022, 02/0 01/2023, 09/08/2022, Additional history exists POTASSIUM LEVEL 09/08/2023 09/08/2022, 04/1 08/2021, 01/01/2021, Additional history exists DEPRESSION SCREENING 03/06/2024 03/06/2023 CREATININE LEVEL 05/18/2024 05/18/2023, 01/2023, 09/08/2022, Additional history exists Adult Td,Tdap Booster 07/03/2024 07/03/2014 INFLUENZA VACCINE (#1) 2025 2, 07/12/2021, 05/18/2019, Additional history exists COVID-19 VACCINE ( season) 2025 06/16/2022, 07/12/2021, 12/12/2020, Additional history exists SCREENING FOR DIABETES 05/18/2026 3, 09/08/2022, 02/09/2020 RSV VACCINE (1 - 1-dose 75+ series) 2037 HEPATITIS C SCREENING Completed 02/16/2019 HIV ONE-TIME SCREENING (18-65 YEARS) Completed 02/16/2019 HEPATITIS A VACCINES Aged Out No long er eligible based on patient's age to complete this topic HIB VACCINES Aged Out No longer eligi ble based on patient's age to complete this topic MENINGOCOCCAL VACCINES (ACWY) Aged Out No longer eligible based on patient's age to complete this topic MENINGOCOCCAL VACCINES (B) Aged Out N o longer eligible based on patient's age to complete this topic Medical Devices Not on file Procedures Procedure Name Priority Date/Time Associated Diagnosis Comments COMPREHENSIVE METABOLIC PANEL Routine 09/08/2022 2:17 PM EST Essential hypertension OUTSIDE HDL Routine 09/08/2022 OUTSIDE GLUCOSE FASTING Routine 09/08/2022 OUTSIDE POTASSIUM LEVEL Routine 09/08/2022 HM COLONOSCOPY FOR RESULT ENTRY ONLY Routine 07/21/2019 HEPATITIS C ANTIBODY, QUALITATIVE Routine 02/16/2019 2:49 PM EDT Routine general medical examination at a [facility] care facility from Last 3 Months or Most Recently Relevant to Health Maintenance Results * Comprehensive metabolic panel (09/08/2022 2:17 PM EST) Blood Result [facility] Claire Hidalgo NP LAB BLOOD ORDERABLES Final Resu lt [address] [id number] * Outside Potassium Level (09/08/2022) Potassium level - External 4.3 3.4 - 5.0 mmol/L Result [facility] Historical Provider LAB BLOOD ORDERABLES Colleen l Result * Outside Glucose,Fasting (09/08/2022) Glucose, fasting - External 89 65 - 99 mg/dL Result [facility] Historical Provider LAB BLOOD ORDERABLES Colleen l Result * Outside HDL (09/08/2022) HDL - External 47 40 - 80 mg/dL Result [facility] Historical Provider LAB BLOOD ORDERABLES Colleen l Result * HM COLONOSCOPY FOR RESULT ENTRY ONLY (07/21/2019) Result [facility] Historical Provider HEALTH MAINTENANCE Final Result * Hepatitis C antibody, qualitative (02/16/2019 2:49 PM EDT) HCV Negative Negative [facility] Comment: This is a screening test and should be confirmed with molecular testing Blood 02/16/2019 2:49 PM EDT 02/16/2019 2:58 PM EDT Result [facility] Claire L [place] DIRECTOR OF EM[employer]OYEE DEVELOPMENT LAB BLOOD ORDERABLES Final Resu lt [address] [id number] from Last 3 Months or Most Recently Relevant to Health Maintenance Insurance HEALTH [employer] [place] [employer] PART[employer] HEALTH SAFETY NET PARTIAL [employer] TPA [facility] [employer] NET PARTIAL CIGNA TPA HEALTH SAFETY [employer] [place] [employer] Care Teams Vehicle Care Specialist Relationship Specialty Start Date End Date Unknown, Unknown, PCP - General 10/30/23 Additional Source Comments The information contained in this document represents components of the legal health record. It is not the complete legal health record.[facility]
[2025-05-30] MEDS: iohexoL 350 MG/ML 100 ML INFUS..BTL IV (10:43)
--- NOTE | 2025-05-30 13:20 | PM.IMHP ---
History of Present Illness Date of Service: 05/30/25 Chief Complaint: GI bleed 65-year-old male, with a past medical history of hypertension and bleeding hemorrhoids, who presents emergency department with concerns of rectal bleeding. Patient reports that he went to work today and felt a gush of wetness in his underwear noticed bright red blood. Reports in the past he has had bright red blood with wiping but this time it was much more. He denied any other symptoms. He denied any weakness, syncope, fever, chills. Abdominal CT negative for any acute abnormality. Stable H&H. He was also noted to have elevated blood pressure reading. He reported that he had not taken these medications in over 2 years. Admit patient for further management and treatment of acute GI bleed and hypertensive urgency. Review of Systems Review of Systems: Denies any recent fever chills or decrease in appetite respiratory denies any shortness of breath or cough cardiovascular denies chest pain gastrointestinal denies any dysphagia abdominal pain nausea vomiting or diarrhea, reports bright red blood per rectum genitourinary denies any dysuria frequency or hematuria musculoskeletal denies any joint pain or swelling neuropsych denies any weakness or seizures all other systems reviewed are negative [facility] Medical History Bleeding hemorrhoids HTN (hypertension) Social History Household Members: Family Alcohol intake: current Alcohol intake frequency: 3 or more drinks per day Patient Tobacco Use Status: Current everyday Tobacco user Advance Directives: No Advance Directives Information Provided: Yes Current occupational status: employed Meds Allergies Allergy/AdvReac Type Severity Reaction Status Date / Time cephalexin (From KEFLEX) Allergy Unknown RASH Verified 05/30/25 09:10 naproxen (NAPROXEN) Allergy Unknown RASH Verified 05/30/25 09:10 sulfamethoxazole (From Allergy Unknown RASH Verified 05/30/25 09:10 BACTRIM) trimethoprim (From BACTRIM) Allergy Unknown RASH Verified 05/30/25 09:10 Active Medications: Current Medications Acetaminophen (Acetaminophen 325 Mg Tablet) 650 mg PO Q6H PRN PRN Reason: Pain, Mild 1-3,fever,headache Calcium Carbonate (Calcium Carbonate 750 Mg Tab.Chew) 750 mg PO Q4H PRN PRN Reason: Heartburn Magnesium Hydroxide (Milk Of Magnesia 30 Ml Oral.Susp) 30 ml PO DAILY PRN PRN Reason: Constipation Melatonin (Melatonin 3 Mg Tablet) 6 mg PO BEDTIME PRN PRN Reason: Insomnia Sodium Chloride (0.9 % Sodium Chloride Flush 3 Ml Syringe) 3 ml IVFLUSH QSHIFT [facility] Home Medications ?Medication ?Instructions ?Recorded ?Confirmed ?Last Taken ?Type irbesartan 150 mg tablet 150 mg PO DAILY 05/25/23 05/30/25 Unknown History Physical Exam Vital Signs and Narrative: Vital Signs: Last Vital Signs Temp 98 F 05/30/25 09:05 Pulse 82 05/30/25 12:00 Resp 18 05/30/25 12:00 BP 175/112 H 05/30/25 12:00 Pulse Ox 97 05/30/25 12:00 O2 Del Method Room Air 05/30/25 12:00 BMI result Body Mass Index 26.3 Appearing in no acute distress head is normocephalic atraumatic eyes pupils are PERRLA sclera is anicteric mouth throat mucous membranes are intact and moist neck is supple no lymphadenopathy, no JVD noted lung sounds are clear to auscultation heart regular rate rhythm, clear S1, S2 positive bowel sounds, abdomen is soft, nontender neuro patient is alert x3, no focal deficits Results Labs 05/30/25 14:38 05/30/25 09:45 Labs: Laboratory Results - last 24 hr 05/30/25 09:45 MCV 91.5 MCH 30.0 MCHC 32.8 RDW 13.4 Plt Count 182 MPV 10.5 Immature Gran % (Auto) 0.3 Neut % (Auto) 74.8 H Lymph % (Auto) 14.3 L [place] % (Auto) 8.7 Eos % (Auto) 1.3 Baso % (Auto) 0.6 Lymph # (Auto) 1.7 [place] # (Auto) 1.0 Eos # (Auto) 0.2 Baso # (Auto) 0.1 Abs Immat Gran (auto) 0.03 Absolute Neuts (auto) 8.8 H Absolute Nucleated RBC 0.000 Nucleated RBC % (auto) 0.0 Anion Gap 12 Estim Creat Clear Calc 80.2 Estimated GFR > 60 Random Glucose 90 Calcium 9.1 Magnesium 2.0 Total Bilirubin 0.4 Direct Bilirubin 0.1 AST 27 ALT 32 Alkaline Phosphatase 89 Total Protein 7.2 Albumin 4.3 Lipase 26 Blood Type O Positive Antibody Screen NEGATIVE Imaging Radiologist's Impressions: Impressions Abdomen/Pelvis CT 05/30/25 10:32 IMPRESSION: There is mildly increased vascularity in the region of the sigmoid colon but no active intra-abdominal bleeding was demonstrated. 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 Bilateral lipid rich adrenal gland adenomas, left greater than right. Fleischner guidelines were followed. Electronically signed by: Oscar Mckeon MD 05/30/2025 11:15 AM EDT RP Assessment and Plan (1) Rectal bleeding: Status: Acute Plan 65-year-old man admitted with GI bleed and hypertensive urgency Acute GI bleed, bright red blood per rectum Stable H&H Patient has history of rectal hemorrhoids GI consultation> scope tomorrow NPO after midnight Clear liquid diet for now and prep Hypertensive urgency Blood pressure as high as 200/120 in the ER Patient reports noncompliance with antihypertensive medications for over 2 years We will start with one , amlodipine 5 mg daily DVT prophylaxis with pneumatic compression boots due to GI bleed Full code Quality Stroke Does the patient have a stroke diagnosis?: No VTE Prior VTE?: No VTE Risk Level:: Medical - moderate - high VTE Device Contraindication: N/A - Device Ordered VTE Drug Contraindication: Treatment Not Indicated
--- NOTE | 2025-05-30 13:41 | MHC.EDTECH ---
pt is eating and asked that I return shortly to draw labs
--- NOTE | 2025-05-30 13:54 | PHA.MEDREC ---
Pharmacy Consult ? Medication Reconciliation Pharmacy has completed the medication reconciliation.Med rec complete, patient was previously on 3 blood pressure medications but was without a pcp and ran out of medications and has been without for almost 2 years.
--- NOTE | 2025-05-30 14:03 | PM.GICN ---
History of Present Illness Data of Consult Service Date: 05/30/25 Primary Care Provider: None Physician HPI Reason for consult: rectal bleeding 65 yr old htn and colon polyps who I am seeing for assessment for rectal bleeding Patient has had intermittent rectal bleeding in the past attributed to hemorrhoids usually worse with hot sauce. He had an episode of soiling his udnerwear with blood today, unprovoked without straining and also one smaller epsidoe of bleeing yesterday. He had hot sauce few days ago. he denies melena, no abdominal pain, no sob, dizziness, or nausea, vomiting and no fever. denies taking nsaids. He had CT with sigmoid vascularity. and stenossi of distal common illiac artery. HGB was stable as were vitals (increased BP), HGB 16. g/dl Last colonsocopy 2018 with tubualr adenomas removed, overdue on f/u Review of Systems Review of Systems: Constitutional : No Weight loss, No Fever, No Chills ENT/Mouth : No sore throat, No Rhinorrhea Eyes: No Swelling, No Redness Cardiovascular : No Chest Pain, No SOB, No Edema Respiratory : No Cough, No Sputum, No Wheezing Gastrointestinal : see HPI Genitourinary : NO Dysuria, No Urinary Frequency, No Hematuria, No Urgency Musculoskeletal : no joint pain, No Myalgias, No Joint Swelling Skin : No Skin Lesions, No rash Neuro : No Weakness, No Numbness, No Dizziness, No Headache Psych : No Anxiety/Panic, No Depression Heme/Lymph: No Bruising, No Lymphadenopathy Endocrine : No Polyuria, No Polydipsia All other systems reviewed and are negative. [facility] Past Medical History Medical History Bleeding hemorrhoids HTN (hypertension) Family History Pertinent family history: no FH of CRC Social History Social History Household Members: Family Alcohol intake: current Alcohol intake frequency: 3 or more drinks per day Patient Tobacco Use Status: Current everyday Tobacco user Advance Directives: No Advance Directives Information Provided: Yes Current occupational status: employed Meds Allergies Allergy/AdvReac Type Severity Reaction Status Date / Time cephalexin (From KEFLEX) Allergy Unknown RASH Verified 05/30/25 09:10 naproxen (NAPROXEN) Allergy Unknown RASH Verified 05/30/25 09:10 sulfamethoxazole (From Allergy Unknown RASH Verified 05/30/25 09:10 BACTRIM) trimethoprim (From BACTRIM) Allergy Unknown RASH Verified 05/30/25 09:10 Active Medications: Current Medications Acetaminophen (Acetaminophen 325 Mg Tablet) 650 mg PO Q6H PRN PRN Reason: Pain, Mild 1-3,fever,headache Calcium Carbonate (Calcium Carbonate 750 Mg Tab.Chew) 750 mg PO Q4H PRN PRN Reason: Heartburn Magnesium Hydroxide (Milk Of Magnesia 30 Ml Oral.Susp) 30 ml PO DAILY PRN PRN Reason: Constipation Melatonin (Melatonin 3 Mg Tablet) 6 mg PO BEDTIME PRN PRN Reason: Insomnia Sodium Chloride (0.9 % Sodium Chloride Flush 3 Ml Syringe) 3 ml IVFLUSH QSHIFT [facility] Home Medications ?Medication ?Instructions ?Recorded ?Confirmed ?Last Taken ?Type irbesartan 150 mg tablet 150 mg PO DAILY 05/25/23 05/30/25 Unknown History Physical Exam Exam: Exam: EXAM: GENERAL: The patient is well developed and nontoxic. VITAL SIGNS:see workflow HEENT: Nonicteric sclerae, PERRLA, EOMI. Oropharynx clear. Moist mucous membranes. Conjunctivae appear well perfused. No thyroid mass. CHEST: Chest wall is nontender. HEART: Regular rate and rhythm without murmurs. LUNGS: Clear to auscultation bilaterally. ABDOMEN: Soft, positive bowel sounds, nontender, no organomegaly.no flank tenderness SKIN: No rash, no excessive bruising, petechiae, or purpura. NEUROLOGIC: Cranial nerves II-XII intact without motor/sensory deficit. Psych: normal affect Vital Signs: Vital Signs: Last Vital Signs Temp 98 F 05/30/25 09:05 Pulse 82 05/30/25 12:00 Resp 18 05/30/25 12:00 BP 175/112 H 05/30/25 12:00 Pulse Ox 97 05/30/25 12:00 O2 Del Method Room Air 05/30/25 12:00 BMI result Body Mass Index 26.3 Results Labs 05/30/25 09:45 05/30/25 09:45 Labs: Short CBC 05/30/25 Range/Units 09:45 WBC 11.8 H (4.8-10.8) X10*3/uL Hgb 16.2 (14.0-18.0) g/dl Hct 49.4 (42.0-52.0) % Plt Count 182 (160-400) X10*3/uL BMP 05/30/25 09:45 Sodium 140 Potassium 3.9 Chloride 106 Carbon Dioxide 26 BUN 14 Creatinine 0.82 Calcium 9.1 Liver Function 05/30/25 Range/Units 09:45 Total Bilirubin 0.4 (0.0-1.0) mg/dL Direct Bilirubin 0.1 (0.0-0.5) mg/dL AST 27 (5-37) U/L ALT 32 (0-40) U/L Alkaline Phosphatase 89 (39-117) U/L Albumin 4.3 (3.5-5.0) g/dL Imaging CT scan - abdomen: Attestation: I personally reviewed and interpreted this imaging study as follows: (atherosclerosis, scoliosis, moderate fecal loading ) Assessment and Plan (1) Hemorrhoids: Status: Acute Plan 1/ Acute blood loss anemia, possibly hemorrhoidal, but canl;t exclude left sided mass or lesion or rectal lesion, PLAN: 1/ Trend HGB q 8h 2/ clears today and bowel prep, colo tomorrow 3/ if HGB <7 then transfuse Procedures Date of Service Date of Service: 05/30/25
[2025-05-30 14:45] LABS: Hematocrit 50.2 % (42.0-52.0); Hemoglobin 16.2 g/dl (14.0-18.0)
--- NOTE | 2025-05-30 14:55 | PC.NURSE ---
patient bp remains high, messaged inpatient provider requesting medication for bp control, patient states that he has been off his medications [id number] due to having no pcp
--- NOTE | 2025-05-30 14:56 | PC.NURSE ---
Back documentation Upon entering room patient just finished eating and told this nurse that the provider told the patient he could eat solids when this nurse asked if pt could specify the provider he said I don't know her name it's the Vietnamese one but she said i can eat.
--- NOTE | 2025-05-30 15:21 | PC.NURSE ---
Pt medicated per MAR, call mix within reach.
--- NOTE | 2025-05-30 16:35 | HO.NURTONUR ---
Dennis is a 65M full code who presented to the ED with concern for rectal bleeding, patient states he noticed bright red blood when wiping after bowel movement, then was at work today when he felt blood in his underwear. patient denies any black tarry stools/emesis. patient is alert and oriented x4, ambulatory has IV in LAC #20. admit for GI consult, H+H is stable currently, colonscopy tomorrow, GI prep at 1830, clear liquids until then start bp medication - amlodipine hx of hemmerrhoids.
[2025-05-30] MEDS: PEG 3350/Na Sulf,Bicarb,Cl/KCL 4,000 ML SOLN.RECON 4000 ML PO (19:48)
[2025-05-30 22:21] LABS: Glucose, Whole Blood 122 mg/dL (60-115)
[2025-05-31] VITALS (11 sets, daily range): BP systolic 92–179; BP diastolic 59–112; PULSE 76–94; RESP 16–20; TEMP 36.2–37.1; O2SAT 95–99
--- NOTE | 2025-05-31 07:00 | CA_ITS ---
Transthoracic Echocardiogram Patient (Last, First, Middle): Dennis Estrada, Gender: M Date of : 1960 Age: 65 Procedure Date: 05/31/2025 Procedure Type: Transthoracic Echocardiogram Location: [facility] [place] Height: 165.1 cm Weight: 74.84 kg BSA: 1.82 m2 Heart Rate: bpm BP: 158 / 100 mmHg Communications Field Technician: SB Referring MD: Parrish Donald MD Symptoms: HTN urgency-LVH? Study Quality: Adequate ECG Rhythm: Sinus Conclusions: - The left ventricular systolic function is normal. The visually estimated ejection fraction is between 55-60%. - There is moderate septal asymmetric hypertrophy. - No obvious valvular pathology seen on this study. - There is mild dilatation of the ascending aorta measuring 4.30 cm. Findings Left Ventricle Normal left ventricular cavity size. There is mildly increased left ventricular wall thickness. The left ventricular systolic function is normal. The visually estimated ejection fraction is between 55-60%. There is no evidence of regional wall motion abnormalities. Evidence suggests grade I (mild) diastolic dysfunction. There is moderate septal asymmetric hypertrophy. Right Ventricle Normal right ventricular cavity size and systolic function. Atria Both atria are normal in size. Aortic Valve There is a normal trileaflet aortic valve. There is mild calcification of the aortic valve. There is no aortic valve stenosis. There is no aortic valve regurgitation. Mitral Valve There is mild anterior mitral leaflet thickening. There is no mitral valve regurgitation. There is no mitral valve stenosis. Pulmonic Valve The pulmonic valve is likely normal. Tricuspid Valve Normal tricuspid valve structure. There is trace tricuspid valve regurgitation. There is no evidence of pulmonary hypertension. Great Vessels There is mild dilatation of the ascending aorta measuring 4.30 cm. Venous The inferior vena cava is normal in size and collapses greater than 50% with inspiration. Pericardium/Pleural There is no evidence of pericardial effusion. Prior Study Comparison No prior study available for comparison. Recommendations, Care & Conclusions No obvious valvular pathology seen on this study. Measurements 2D Linear Measurements IVSd: 1.37 0.6-0.9/0.6-1.0 cm LVIDd: 4.34 3.9-5.3/4.2-5.9 cm LVIDd Index: 2.38 2.4-3.2/2.2-3.1 cm/m2 LVIDs: 2.98 2.0-3.6 cm LVPWd: 1.15 0.7-1.1 cm LA Diam: 2.80 2.7-3.8/3.0-4.0 cm LAIDs Index: 1.54 1.5-2.3 cm/m2 LV Mass: 250.73 67-162/88-224 g LV Mass Index: 137.76 43-95/49-115 g/m2 LVOT Diam: 2.00 3.0+(-)1.3 cm 2D Systolic Function EF 4C: 49.50 >55% EF 2C: 58.60 >55% EF BiP: 54.10 >55% Mitral Valve MV Pk E: 0.63 MV PK A: 0.81 MV Decel Time: 250.00 E/A: 0.80 E'Lateral: 4.24 E'Medial: 5.11 E/E' Med: 12.30 E/E' Lat: 14.80 PHT: 73.00 MVA PHT: 3.01 Decel [place]: 2.50 Aortic Valve AoV Pk Chris: 1.35 AoV Mn Chris: 0.87 AoV VTI: 0.23 AoV Pk Grad: 7.00 Aov Mn Grad: 4.00 SALE[place] Cont.VTI: 2.68 LVOT LVOT Pk Chris: 1.02 LVOT Mn Chris: 0.73 LVOT VTI: 0.19 LVOT Pk Grad: 4.00 LVOT Mn Grad: 2.00 LVOT Diam: 2.00 LVOT Area: 3.14 Diastolic Function MV Pk E: 0.63 MV Pk A: 0.81 E/A: 0.80 E'Medial: 5.11 E/E' Med: 12.30 E' Laterial: 4.24 E/E' Lat: 14.80 Right Ventricle TAPSE (mm): 22.60 TVS' Chris: 11.60 Tricuspid Valve TR Pk Chris: 1.88 TR Pk Grad: 14.00 RA Press: 3.00 RVSP: 17.00 Great Vessels Aorta Sinus of Valsalva: 3.30 2.0-3.5 cm Ao Asc: 4.30 2.1-3.4 cm Pulmonary Valve PV Pk Chris: 0.85 Peak PV Grad: 3.00 Updated in Other Vendor System with Status of Final Abhishek Kumar MD electronically signed on 05/31/2025 12:00:32 PM with status of Final
[2025-05-31 07:09] LABS: Hematocrit 52.3 % (42.0-52.0); Hemoglobin 17.4 g/dl (14.0-18.0); Mean Corpuscular HGB Conc 33.3 g/dl (31.0-36.0); Mean Corpuscular Hemoglobin 30.4 pg (27.0-33.0); Mean Corpuscular Volume 91.3 fL (80.0-98.0); NRBC Abs Auto 0.000 X10*3/uL (0.0-0.012); NRBC Pct Auto 0.0 /100WBC (0.0-0.2); Platelet Count 195 X10*3/uL (160-400); Red Blood Count 5.73 X10*6/uL (4.60-5.80); White Blood Count 11.1 X10*3/uL (4.8-10.8)
[2025-05-31 07:27] LABS: Anion Gap 13 (12-20); Blood Urea Nitrogen 8 mg/dL (9-16); Calcium 9.4 mg/dL (8.4-10.2); Carbon Dioxide 25 mmol/L (22-29); Chloride 106 mmol/L (96-108); Creatinine Clr Calc Pharmacy 86.5; Estimated Glomerular Filt Rate > 60; Potassium 3.8 mmol/L (3.3-5.1); Sodium 140 mmol/L (135-145)
--- NOTE | 2025-05-31 07:53 | P.CONAN_ITS ---
Documented by User: Leidy Jefferson NP 05/31/25 12:20 HPI - Anesthesia Eval Consult details Narrative: 65 yr old male for colonoscopy Pt had bedside echo for baseline given elevated BPs, no meds for 2 yrs - *see below report Pt denies CP/SOB, very active every day working. No recent illness. +cocaine use prior to January 2025 ED visit, came in with chest pain, EKG, trops unremarkable; started on amlodipine through ED; note stated no PCP CT obtained revealing mild increased vascularity in the region of the sigmoid colon but no active intra-abdominal bleeding demonstrated. There is hemodynamically significant stenosis involving the distal left common iliac artery measuring 60%. There is also bilateral lipid rich adrenal gland adenomas left greater than right. Given this finding, I reached out to Dr. Smith, vascular surgeon. He is recommending that he will be happy to see him outpatient, recommending aspirin and statin. We are deferring aspirin treatment at this time as patient is presenting with rectal bleeding. PMFSH Active Problems Active Problems: All Active Problems Rectal bleeding (Acute) Bleeding hemorrhoids (Acute) Hemorrhoids (Acute) History of colon polyps (Acute) Past Medical History Medical History Bleeding hemorrhoids HTN (hypertension) Social History Social History Household Members: Family Housing: House Do you presently have visiting nurse or other home services: No Alcohol intake: current Alcohol intake frequency: 3 or more drinks per day Patient Tobacco Use Status: Current everyday Tobacco user Tobacco use type: Cigarette service: No Current occupational status: employed Meds Allergies Allergy/AdvReac Type Severity Reaction Status Date / Time cephalexin (From KEFLEX) Allergy Unknown RASH Verified 05/30/25 09:10 naproxen (NAPROXEN) Allergy Unknown RASH Verified 05/30/25 09:10 sulfamethoxazole (From Allergy Unknown RASH Verified 05/30/25 09:10 BACTRIM) trimethoprim (From BACTRIM) Allergy Unknown RASH Verified 05/30/25 09:10 Active Medications: Current Medications Acetaminophen (Acetaminophen 325 Mg Tablet) 650 mg PO Q6H PRN PRN Reason: Pain, Mild 1-3,fever,headache Amlodipine Besylate (Amlodipine Besylate 5 Mg Tablet) 5 mg PO DAILY FREDY; Protocol Last Admin: 05/30/25 15:14 Dose: 5 mg Calcium Carbonate (Calcium Carbonate 750 Mg Tab.Chew) 750 mg PO Q4H PRN PRN Reason: Heartburn Magnesium Hydroxide (Milk Of Magnesia 30 Ml Oral.Susp) 30 ml PO DAILY PRN PRN Reason: Constipation Melatonin (Melatonin 3 Mg Tablet) 6 mg PO BEDTIME PRN PRN Reason: Insomnia Sodium Chloride (0.9 % Sodium Chloride Flush 3 Ml Syringe) 3 ml IVFLUSH QSHIFT [facility] Last Admin: 05/31/25 01:02 Dose: Not Given Home Medications ?Medication ?Instructions ?Recorded ?Confirmed ?Last Taken ?Type irbesartan 150 mg tablet 150 mg PO DAILY 05/25/23 Unknown History Exam Height,Weight and Vital Signs: Height 5 ft 5 in Weight 71.1 kg Last Vital Signs Temp 98.1 F 05/31/25 07:19 Pulse 90 05/31/25 07:19 Resp 18 05/31/25 07:19 BP 168/100 H 05/31/25 07:19 Pulse Ox 98 05/31/25 07:19 O2 Del Method Room Air 05/31/25 07:19 Pertinent Lab Results Pertinent Lab Results: Laboratory Tests 05/30/25 05/30/25 05/30/25 09:45 14:38 22:08 WBC 11.8 H RBC 5.40 Hgb 16.2 16.2 Hct 49.4 50.2 MCV 91.5 MCH 30.0 MCHC 32.8 RDW 13.4 Plt Count 182 MPV 10.5 Immature Gran % (Auto) 0.3 Neut % (Auto) 74.8 H Lymph % (Auto) 14.3 L [place] % (Auto) 8.7 Eos % (Auto) 1.3 Baso % (Auto) 0.6 Lymph # (Auto) 1.7 [place] # (Auto) 1.0 Eos # (Auto) 0.2 Baso # (Auto) 0.1 Abs Immat Gran (auto) 0.03 Absolute Neuts (auto) 8.8 H Absolute Nucleated RBC 0.000 Nucleated RBC % (auto) 0.0 Sodium 140 Potassium 3.9 Chloride 106 Carbon Dioxide 26 Anion Gap 12 BUN 14 Creatinine 0.82 Estim Creat Clear Calc 80.2 Estimated GFR > 60 POC Glucose 122 H Random Glucose 90 Calcium 9.1 Magnesium 2.0 Total Bilirubin 0.4 Direct Bilirubin 0.1 AST 27 ALT 32 Alkaline Phosphatase 89 Total Protein 7.2 Albumin 4.3 Lipase 26 Blood Type O Positive Antibody Screen NEGATIVE 05/31/25 06:44 WBC 11.1 H RBC 5.73 Hgb 17.4 Hct 52.3 H MCV 91.3 MCH 30.4 MCHC 33.3 RDW 13.2 Plt Count 195 MPV 10.7 Immature Gran % (Auto) Neut % (Auto) Lymph % (Auto) [place] % (Auto) Eos % (Auto) Baso % (Auto) Lymph # (Auto) [place] # (Auto) Eos # (Auto) Baso # (Auto) Abs Immat Gran (auto) Absolute Neuts (auto) Absolute Nucleated RBC 0.000 Nucleated RBC % (auto) 0.0 Sodium 140 Potassium 3.8 Chloride 106 Carbon Dioxide 25 Anion Gap 13 BUN 8 L Creatinine 0.76 Estim Creat Clear Calc 86.5 Estimated GFR > 60 POC Glucose Random Glucose 105 Calcium 9.4 Magnesium Total Bilirubin Direct Bilirubin AST ALT Alkaline Phosphatase Total Protein Albumin Lipase Blood Type Antibody Screen Narrative Narrative: EKG 01/2025 Vent. Rate : 75 BPM Atrial Rate : 75 BPM P-R Int : 132 ms QRS Dur : 100 ms QT Int : 388 ms P-R-T Axes : 60 55 66 degrees QTcB Int : 433 ms Normal sinus rhythm Possible Left atrial enlargement Incomplete right bundle branch block Minimal voltage criteria for LVH, may be normal variant ( Finn product ) Borderline ECG When compared with ECG of 11-Nov-2021 11:36, No significant change was found ECHO 05/31/25 Conclusions: - The left ventricular systolic function is normal. The visually estimated ejection fraction is between 55-60%. - There is moderate septal asymmetric hypertrophy. - No obvious valvular pathology seen on this study. - There is mild dilatation of the ascending aorta measuring 4.30 cm. Documented by User: Giovanna Tang MD 05/31/25 13:19 [facility] Past Medical History Medical History Bleeding hemorrhoids HTN (hypertension) Surgical History History of Problems with Anesthesia: No Social History Social History Household Members: Family Housing: House Do you presently have visiting nurse or other home services: No Alcohol intake: current Alcohol intake frequency: 3 or more drinks per day Patient Tobacco Use Status: Current everyday Tobacco user Tobacco use type: Cigarette service: No Current occupational status: employed Meds Allergies Allergy/AdvReac Type Severity Reaction Status Date / Time cephalexin (From KEFLEX) Allergy Unknown RASH Verified 05/30/25 09:10 naproxen (NAPROXEN) Allergy Unknown RASH Verified 05/30/25 09:10 sulfamethoxazole (From Allergy Unknown RASH Verified 05/30/25 09:10 BACTRIM) trimethoprim (From BACTRIM) Allergy Unknown RASH Verified 05/30/25 09:10 Home Medications ?Medication ?Instructions ?Recorded ?Confirmed ?Last Taken ?Type irbesartan 150 mg tablet 150 mg PO DAILY 05/25/23 Unknown History Exam Airway Mallampati Class: III TM Dist: >3cm Neck ROM: Full Loose/Missing/Broken Teeth: No Heart: RRR Lungs: CTA Assessment and Plan Assessment Anesthesia Assessment: Anesthesia Plan Discussed and Chart Reviewed Final Anesthetic Review History of Problems with Anesthesia: No NPO: Yes ASA Class: III Final Preanesthetic Review: Meds/Allgs Chart Reviewed, Consent Obtained/Reviewed and Anes Risks/Benef Reviewed Patient Risk: Intermediate Procedure Risk: Low Anesthetic Plan Anesthetic Plan: MAC: Disposition: Standard PACU
[2025-05-31] MEDS: 0.9 % Sodium Chloride Flush 3 ML SYRINGE IVFLUSH (07:57)
--- NOTE | 2025-05-31 10:50 | MHC.CM.PN ---
Pt. lives with his brother, he does not have PCP, brochure given. HCP to be completed here and added to file. Pt. does not use home health services or DME, his car is here. DCP: home, self care, Pt. motivated to get connected to new PCP. CM to follow for DC needs.
--- NOTE | 2025-05-31 12:32 | PC.NURSE ---
dr. nava reviewed bedside echo and vs and stated patient okay to come down.
--- NOTE | 2025-05-31 13:35 | P.PNGI_ITS ---
Subjective Subjective Date of Service: 05/31/25 Interval History: No abdominal pain he dis see some blood in stool yesterday evening when taking bowel prep no n/v no fever Critical Care Time (minutes): 0 Physical Exam 2 Exam: Exam: EXAM: GENERAL: The patient is well developed and nontoxic. VITAL SIGNS:see workflow HEENT: Nonicteric sclerae, PERRLA, EOMI. Oropharynx clear. Moist mucous membranes. Conjunctivae appear well perfused. No thyroid mass. CHEST: Chest wall is nontender. HEART: Regular rate and rhythm without murmurs. LUNGS: Clear to auscultation bilaterally. ABDOMEN: Soft, positive bowel sounds, nontender, no organomegaly.no flank tenderness SKIN: No rash, no excessive bruising, petechiae, or purpura. NEUROLOGIC: Cranial nerves II-XII intact without motor/sensory deficit. Psych: normal affect Vital Signs: Vital Signs: Last Vital Signs Temp 98.8 F 05/31/25 12:56 Pulse 76 05/31/25 12:56 Resp 16 05/31/25 12:56 BP 148/112 H 05/31/25 12:56 Pulse Ox 95 05/31/25 12:56 O2 Del Method Room Air 05/31/25 12:56 BMI result Body Mass Index 26.1 Objective Data Labs 05/31/25 06:44 05/31/25 06:44 Labs: Laboratory Results - last 24 hr 05/30/25 05/30/25 05/31/25 14:38 22:08 06:44 WBC 11.1 H RBC 5.73 Hgb 16.2 17.4 Hct 50.2 52.3 H MCV 91.3 MCH 30.4 MCHC 33.3 RDW 13.2 Plt Count 195 MPV 10.7 Absolute Nucleated RBC 0.000 Nucleated RBC % (auto) 0.0 Sodium 140 Potassium 3.8 Chloride 106 Carbon Dioxide 25 Anion Gap 13 BUN 8 L Creatinine 0.76 Estim Creat Clear Calc 86.5 Estimated GFR > 60 POC Glucose 122 H Random Glucose 105 Calcium 9.4 Procedures Date of Service Date of Service: 05/31/25 Progress Note: A&P Assessment and plan (1) Rectal bleeding: Status: Acute Plan 1/ Rectal bleeding, possibly hemorrhoidal or low level rectal lesion--vitals and Hgb stable PLAN: /1 - colonoscopy for further evalaution Time Spent With Patient Time: Total time managing care of this patient today ____ minutes. Quality Stroke Does the patient have a stroke diagnosis?: No VTE Prior VTE?: No VTE Risk Level:: Medical - moderate - high VTE Device Contraindication: N/A - Device Ordered VTE Drug Contraindication: Treatment Not Indicated
--- NOTE | 2025-05-31 14:03 | P.PNIM_ITS ---
Subjective Subjective Date of Service: 05/31/25 Interval History: No new complaints today. No abdominal discomfort or recurrence of hematochezia or melena currently. Plans for colonoscopy/EGD with Gastroenterology today. Currently NPO Review of Systems Review of Systems: Yes all other systems are reviewed and are negative Physical Exam 2 Exam: Exam: General: A&O x3, oriented to time place person and situation, comfortable, no pain Cardiac: S1, S2 auscultated with no S3/4, no MRG. Well perfused. Respiratory: Normal breath sounds auscultated throughout all lung zones, without wheezing, rales. Normal rate. GI/ : No abdominal pain on palpation, no masses or distentions. MSK: Normal ambulation without pain at bony prominences or musculature Neurological: Normal neurological examination on overview, without obvious CN II-XII abnormalities. Vital Signs: Vital Signs: Last Vital Signs Temp 98.8 F 05/31/25 12:56 Pulse 76 05/31/25 12:56 Resp 16 05/31/25 12:56 BP 148/112 H 05/31/25 12:56 Pulse Ox 95 05/31/25 12:56 O2 Del Method Room Air 05/31/25 12:56 BMI result Body Mass Index 26.1 Objective Data Active Medications Acetaminophen (Acetaminophen 325 Mg Tablet) 650 mg PO Q6H PRN PRN Reason: Pain, Mild 1-3,fever,headache Amlodipine Besylate (Amlodipine Besylate 5 Mg Tablet) 5 mg PO DAILY FREDY; Protocol Last Admin: 05/31/25 07:57 Dose: 5 mg Documented By: TERRI Calcium Carbonate (Calcium Carbonate 750 Mg Tab.Chew) 750 mg PO Q4H PRN PRN Reason: Heartburn Magnesium Hydroxide (Milk Of Magnesia 30 Ml Oral.Susp) 30 ml PO DAILY PRN PRN Reason: Constipation Melatonin (Melatonin 3 Mg Tablet) 6 mg PO BEDTIME PRN PRN Reason: Insomnia Sodium Biphosphate/Sodium Phosphate (Sodium Phosphate,Pike-Dibasic 133 Ml Enema) 133 ml VA ONCE PRN PRN Reason: Poor Colonoscopy Prep Results Last Admin: 05/31/25 11:08 Dose: 133 ml Documented By: TERRI Sodium Biphosphate/Sodium Phosphate (Sodium Phosphate,[place]ike-Dibasic 133 Ml Enema) 133 ml VA ONCE PRN PRN Reason: Poor Colonoscopy Prep Results Last Admin: 05/31/25 11:38 Dose: 133 ml Documented By: TERRI Sodium Chloride (0.9 % Sodium Chloride Flush 3 Ml Syringe) 3 ml IVFLUSH QSHIFT [facility] Last Admin: 05/31/25 07:57 Dose: 3 ml Documented By: TERRI Labs 05/31/25 06:44 05/31/25 06:44 Labs: Laboratory Results - last 24 hr 05/30/25 05/31/25 22:08 06:44 MCV 91.3 MCH 30.4 MCHC 33.3 RDW 13.2 Plt Count 195 MPV 10.7 Absolute Nucleated RBC 0.000 Nucleated RBC % (auto) 0.0 Anion Gap 13 Estim Creat Clear Calc 86.5 Estimated GFR > 60 POC Glucose 122 H Random Glucose 105 Calcium 9.4 Assessment and Plan (1) Hematochezia: Status: Acute (2) Hypertensive urgency: Status: Acute (3) HTN (hypertension): Status: Acute (4) Noncompliance: Status: Acute Plan 65-year-old male with a background history of HTN, bleeding hemorrhoids, presents to the emergency department with BRBPR, admitted with hematochezia and hypertensive urgency. Hematochezia History bleeding hemorrhoids H&H stable Patient has a history of rectal hemorrhoids with bleeding in the past GI was consulted with plans for colonoscopy today. PLAN - colonoscopy plus or minus EGD - advance diet from NPO to regular diet post colonoscopy - GI recommendations greatly appreciated Hypertensive urgency HTN Patient has a history of HTN, noncompliant with medications The patient reports that his blood pressure has been significantly elevated over the past few weeks 180-200 systolic He reports he has not been taking his medications and is generally noncompliant. The patient experiences no chest pain palpitations dizziness diaphoresis dyspnea. Patient was started on amlodipine 5 mg OD p.o., with improvement in blood pressure to 160 systolic. For the next 24 hours, 140-160 systolic is in acceptable range for the patient. PLAN - continue amlodipine 5 mg OD p.o. - echocardiography ordered to evaluate for LVH/septal hypertrophy - if evidence of such exists, transition the patient to carvedilol - optimize blood pressure medications tomorrow QUALITY [employer] - VTE: SCDs - CODE STATUS: Full code - DIET: NPO --> regular diet Total time managing care of this patient today: 35 minutes. Quality Stroke Does the patient have a stroke diagnosis?: No VTE Prior VTE?: No VTE Risk Level:: Medical - moderate - high VTE Device Contraindication: N/A - Device Ordered VTE Drug Contraindication: Treatment Not Indicated
--- NOTE | 2025-05-31 14:19 | P.OPN-COLO_ITS ---
Colonoscopy Operative Note Operative Note Date of Service: 05/31/25 Narrative: Operative Information Procedure Description: Colonoscopy Indication: Rectal bleeding Anesthesia: MAC COLONOSCOPY Instrument: Olympus variable stiffness pediatric scope 190L Colonoscopy Monitoring: Vital signs and clinical assessment, continuous EKG monitoring, Pulse oximetry, Carbon Dioxide monitoring and blood pressure monitoring were done throughout the procedure. Colon withdrawal time was 15 minutes. Procedure: The patient was placed in the left lateral decubitis position and pre-procedure medications were administered. After a digital rectal examination of the ano-rectum, the video colonoscope was inserted into the rectum and advanced through the colon to the cecum/TI. The colonoscope was slowly withdrawn in a retrograde panoramic fashion and the colon mucosa was carefully examined including a retroflexed view of the rectum. Findings and interventions are described below. Procedure Difficulty: easy Findings: Terminal Ileum-normal Cecum:normal right sided retroflexion- normal Ascending Colon: normal Transverse Colon -normal Descending Colon: x 2 sessile polyp 6-9 mm removed with cold snare Sigmoid Colon:mild diverticulosis, 5-6 mm sessile polyp removed with cold forceps Rectum: Retroflexion with small internal hemorrhoids seen, grade I, 10 mm sessile polyp removed with cold snare Anorectum - normal Intervention: cold snare, cold forceps Colon preparation: [place] Bowel Preparation Scale Right colon; 2 Transverse colon: 2 Left colon; 2 (0 = Unprepared colon segment with mucosa not seen due to solid stool that cannot be cleared. 1 = Portion of mucosa of the colon segment seen, but other areas of the colon segment not well seen due to staining, residual stool and/or opaque liquid. 2 = Minor amount of residual staining, small fragments of stool and/or opaque liquid, but mucosa of colon segment seen well. 3 = Entire mucosa of colon segment seen well with no residual staining, small fragments of stool or opaque liquid) Impression and Post Procedure Diagnosis: diverticulosis colon polyps internal hemorrhoids Rectal bleeding is due to small inflammed rectal hemorrhoids Plan: High fiber diet leaflet Avoid straining at stool, epsom salts and sitz bath, anusol supps or cream Repeat Colonoscopy in 3-4 years due to polyps or earlier if clinically indicated Above findings were reviewed with the patient and relevant handouts were provided if indicated.
[2025-06-01] VITALS: BP 165/91; PULSE 96; RESP 18; TEMP 37.1; O2SAT 97
[2025-06-01 04:00] VITALS: BP 134/84; PULSE 85; RESP 18; TEMP 36.7; O2SAT 97
[2025-06-01 07:14] VITALS: BP 154/90; PULSE 83; RESP 18; TEMP 37.2; O2SAT 96
--- NOTE | 2025-06-01 08:26 | HO.POSTANES ---
Post Anesthesia Evaluation Post Anesthesia Evaluation Date of Service: 06/01/25 Vital Signs: Vital Signs Temp Pulse Resp BP Pulse Ox O2 Del Method 06/01/25 07:14 98.9 F 83 18 154/90 H 96 Room Air 06/01/25 04:00 98.1 F 85 18 134/84 97 Room Air 06/01/25 00:00 98.8 F 96 18 165/91 H 97 Room Air 05/31/25 21:13 154/95 H Anesthesia: Monitored Mental Status: Awake Pain Control: Satisfactory Nausea/Vomiting: None Hydration: Adequate Anesthesia-Related Issues: No Anes. Related Issues
[2025-06-01] MEDS: 0.9 % Sodium Chloride Flush 3 ML SYRINGE IVFLUSH (09:12)
[2025-06-01 11:17] VITALS: BP 155/94; PULSE 91; RESP 18; TEMP 36.3; O2SAT 97
--- NOTE | 2025-06-01 11:25 | P.DS_ITS ---
DS: Providers Provider Date of Service: 06/01/25 Date of admission: 05/30/25 13:18 Date of discharge: 06/01/25 Primary care physician: None Physician Consults: 05/30/25 13:19 Consult to Gastroenterology Routine Consulting Provider: [facility] [place] Gastroenterology Services Reason for consultation: gibleed DS: Diagnosis Discharge Diagnosis (1) Hematochezia: Status: Acute (2) Hypertensive urgency: Status: Acute (3) HTN (hypertension): Status: Acute (4) Noncompliance: Status: Acute DS: Summary Hospital Course Hospital Course: 65-year-old male with a background history of HTN, bleeding hemorrhoids, presents to the emergency department with BRBPR, admitted with hematochezia and hypertensive urgency. Hematochezia History bleeding hemorrhoids Diverticulosis H&H stable Patient has a history of rectal hemorrhoids with bleeding in the past GI was consulted with plans for colonoscopy. ; performed 05/31 without complciation Findings include diverticulosis and inflamed rectal hemorrhoids without obvious bleeding currently. Bleeding resolved. Hypertensive urgency HTN Asymmetric moderate septal hypertrophy Patient has a history of HTN, noncompliant with medications The patient reports that his blood pressure has been significantly elevated over the past few weeks 180-200 systolic He reports he has not been taking his medications and is generally noncompliant. The patient experiences no chest pain palpitations dizziness diaphoresis dyspnea. Patient was started on amlodipine 5 mg OD p.o., with improvement in blood pressure to 160 systolic. For the next 24 hours, 140-160 systolic is in acceptable range for the patient. PLAN - continue amlodipine 5 mg OD p.o. - continue carvedilol 6.25mg BID PO - increase as tolerated - optimize blood pressure in outpatient setting Status at Discharge Cognitive/behavioral status at discharge: A&O x3 Functional status at discharge: independent ambulation Overall status at discharge: patient is back to baseline Time Attestation Total time managing care of this patient today: 45 mintues. Discharge Coordination Time (in mins): 15 Quality: Safe Use of Opioids Does Pt have an Active Cancer Diagnosis on the Problem List?: No Quality: Stroke Does the patient have a stroke diagnosis?: No Physical Exam Exam: Exam: General: A&O x3, oriented to time place person and situation, comfortable, no pain Cardiac: S1, S2 auscultated with no S3/4, no MRG. Well perfused. Respiratory: Normal breath sounds auscultated throughout all lung zones, without wheezing, rales. Normal rate. GI/ : No abdominal pain on palpation, no masses or distentions. MSK: Normal ambulation without pain at bony prominences or musculature Neurological: Normal neurological examination on overview, without obvious CN II-XII abnormalities.\ Vital Signs: Vital Signs: Last Vital Signs Temp 97.4 F 06/01/25 11:17 Pulse 91 06/01/25 11:17 Resp 18 06/01/25 11:17 BP 155/94 H 06/01/25 11:17 Pulse Ox 97 06/01/25 11:17 O2 Del Method Room Air 06/01/25 11:17 BMI result Body Mass Index 26.1 DS: Data Data Completed and Pending Pending studies at discharge: Pending at discharge 05/31/25 14:22 Surgical [PTH] Routine Discharge Plan Discharge Anticipated Discharge Date/Time: 06/01/25 11:29 Patient Disposition: Home, Self-Care Discharge Diagnosis: BRBPR from inflamed rectal hemorrhoids and hypertensive urgency Referrals: Physician,None [Primary Care Provider, Medical] - 1 Week Discharge Medications: New amlodipine 5 mg Tablet 5 mg PO DAILY 30 Days Qty: 30 0RF Protocol: Hold for SBP< HOLD for SBP < : 90 carvedilol 6.25 mg tablet 6.25 mg PO BID Qty: 60 0RF Rx Instructions: must administer with a meal/food Discontinued amlodipine 5 mg tablet 5 mg PO DAILY Qty: 60 2RF Rx Instructions: PATIENT HAS NOT BEEN TAKING FOR ABOUT 2 YEARS, DID NOT HAVE A PCP AND RAN OUT OF MEDICATION hydrochlorothiazide 12.5 mg tablet 12.5 mg PO DAILY Qty: 60 2RF Rx Instructions: PATIENT HAS NOT BEEN TAKING MEDICATION FOR ALMOST 2 YEARS, DID NOT HAVE PCP AND RAN OUT OF MEDICATION irbesartan 150 mg tablet 150 mg PO DAILY Rx Instructions: PATIENT HAS NOT BEEN TAKING FOR ALMOST 2 YEARS, DID NOT HAVE PCP AND RAN OUT OF MEDICATION Discharge Orders: Discharge Order (Routine); Ordered 06/01/25 Ordered By: Parrish Donald Diet: Advance to usual diet Activity on Discharge: As tolerated Stand Alone Forms: Patient Portal Discharge page Print Language: [place] Care Plan Goals: As above Health Concerns: As above Plan of Treatment: Follow up with PCP within 1 week of discharge Follow up with Cardiology in outpatient setting High-fiber diet Monitor for recurrence of bleeding Assessment: Overall hemodynamically stable, and medically ready for discharge.
--- NOTE | 2025-06-01 12:34 | MHC.CM.PN ---
Pt. has been medically cleared to [place], he will go home via private transport plan is self care.
== END 2025-06-01 12:15 | disposition home or self-care (01) | DRG 379 ==
LOC: HO.ED 09:21 → HO.EDOVER 13:21 → HO.IMC 16:29
PROVIDERS: Internal Medicine Gastroenterology; Physician Assistant Medical; Admitting Provider Nurse Practitioner Acute Care; Emergency Provider Emergency Medicine; Visit Provider Hospitalist
PROC: 0DJD8ZZ Inspection of Lower Intestinal Tract, Via Natural or Artificial Opening Endoscopic (ICD-10-PCS; CPT 45378; principal; 2025-05-31 15:00)
DX: K57.31 Diverticulosis of large intestine without perforation or abscess with bleeding (principal); I16.0 Hypertensive urgency; I11.9 Hypertensive heart disease without heart failure; F17.210 Nicotine dependence, cigarettes, uncomplicated; K63.5 Polyp of colon; K62.1 Rectal polyp; K64.8 Other hemorrhoids; Z71.6 Tobacco abuse counseling; Z91.148 Patient's other noncompliance with medication regimen for other reason; Z79.899 Other long term (current) drug therapy
CPT/HCPCS: 45385; 45380; 36415; 74178; 80048; 80076; 82947; 83690; 83735; 85014; 85018; 85025; 85027; 86850; 86900; 86901; 88305; 93306; 99222; 99284; J2003; J2704; Q9967

== ENCOUNTER → 2025-05-30 10:27 | Outpatient (BNV) | payer OTHER, SELFPAY | PROVIDERS: Emergency Provider Emergency Medicine; Visit Provider Radiology Diagnostic Radiology | DX: K55.8 Other vascular disorders of intestine (principal); I70.8 Atherosclerosis of other arteries; D35.01 Benign neoplasm of right adrenal gland; D35.02 Benign neoplasm of left adrenal gland | CPT/HCPCS: 74178 ==

== ENCOUNTER 2025-05-30 13:18 | Outpatient (BNV) | payer OTHER, SELFPAY | END 2025-05-31 07:00 | PROVIDERS: Admitting Provider Nurse Practitioner Acute Care; Emergency Provider Emergency Medicine; Visit Provider Internal Medicine | DX: I42.2 Other hypertrophic cardiomyopathy (principal); I51.7 Cardiomegaly; I77.810 Thoracic aortic ectasia | CPT/HCPCS: 93306 ==

== ENCOUNTER → 2025-05-30 13:18 | Outpatient (BNV) | payer OTHER, SELFPAY | PROVIDERS: Admitting Provider Nurse Practitioner Acute Care; Emergency Provider Emergency Medicine; Visit Provider Nurse Practitioner Acute Care | DX: K92.1 Melena (principal); I16.0 Hypertensive urgency; I10 Essential (primary) hypertension; Z91.199 Patient's noncompliance with other medical treatment and regimen due to unspecified reason; K62.5 Hemorrhage of anus and rectum | CPT/HCPCS: 99223; 99232 ==

== ENCOUNTER → 2025-05-30 13:18 | Outpatient (BNV) | payer OTHER, SELFPAY | PROVIDERS: Admitting Provider Nurse Practitioner Acute Care; Emergency Provider Emergency Medicine; Visit Provider Internal Medicine Gastroenterology | DX: K64.9 Unspecified hemorrhoids (principal) | CPT/HCPCS: 99223 ==